=== PATIENT | male | born 2000 | race Caucasian/White ===

== ENCOUNTER 2021-11-04 09:02 | Emergency (ER) | payer MEDICAID ==
--- NOTE | 2021-11-04 09:09 | ERPHSYRPT ---
- History of Present Illness Time Seen by Provider: 11/04/21 09:09 Historian: patient Exam Limitations: no limitations Physician History: This is a 21-year-old white male who has no local physician and recently moved to the area. He has chronic, intermittent abdominal pain. Most recently the pain in his bilateral lower abdomen began a couple days ago. He has had nausea vomiting and alternating bouts of constipation and diarrhea. He has had no fever. He has no chills. He has no shortness of breath or chest pain. Patient has never had any abdominal surgeries. He has had an upper endoscopy in the past. Activities at Onset: none Quality: aching Abdominal Pain Onset Location: RLQ, LLQ Pain Radiation: no radiation Severity of Pain-Max: moderate Severity of Pain-Current: mild (Mild to moderate) Associated Symptoms: nausea, vomiting, other (Constipation), No chest pain, No diaphoresis, No shortness of breath Previous symptoms: same symptoms as today Allergies/Adverse Reactions: No Known Drug Allergies Allergy (Verified 11/04/21 09:33) Travel Risk - International Travel Have you traveled outside of the country in past 3 weeks: No - Coronavirus Screening Are you exhibiting any of the following symptoms?: No Close contact with a COVID-19 positive Pt in past 14-21 Days: No - Review of Systems Constitutional: No Symptoms Eyes: No Symptoms Ears, Nose, & Throat: No Symptoms Respiratory: No Symptoms Cardiac: No Symptoms Abdominal/Gastrointestinal: Abdominal Pain, Nausea, Vomiting, Constipation Genitourinary Symptoms: No Symptoms Musculoskeletal: No Symptoms Skin: No Symptoms Neurological: No Symptoms Psychological: No Symptoms Endocrine: No Symptoms Hematologic/Lymphatic: No Symptoms Immunological/Allergic: No Symptoms All Other Systems: Reviewed and Negative - Past Medical History Pertinent Past Medical History: No - Past Surgical History Past Surgical History: No - Nursing Vital Signs Nursing Vital Signs: Initial Vital Signs Temperature 96.9 F 11/04/21 09:19 Pulse Rate 89 11/04/21 09:19 Blood Pressure 131/91 11/04/21 09:19 O2 Sat by Pulse Oximetry 99 11/04/21 09:19 Pain Scale Pain Intensity 4 - Physical Exam General Appearance: no apparent distress, alert, anxiety Eye Exam: PERRL/EOMI, eyes nml inspection Ears, Nose, Throat Exam: normal ENT inspection, moist mucous membranes Neck Exam: normal inspection, non-tender, supple, full range of motion Respiratory Exam: normal breath sounds, lungs clear, airway intact, No chest tenderness, No respiratory distress Cardiovascular Exam: regular rate/rhythm, normal heart sounds, normal peripheral pulses Gastrointestinal/Abdomen Exam: soft, normal bowel sounds, tenderness (Mild tenderness to palpation in the bilateral lower quadrants. 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, normal mood/affect, nml cerebellar function, nml station & gait, sensation nml Skin Exam: normal color, warm, dry Lymphatic Exam: No adenopathy SpO2 Interpretation: normal O2 Delivery: Room Air - Course Nursing assessment & vital signs reviewed: Yes Ordered Tests: Active Orders 24 hr Category Date Time Status IV Insertion STAT Care 11/04/21 09:55 Active ABDOMEN AND PELVIS W/0 CONTRAS [CT] Stat Exams 11/04/21 10:45 Completed AMYLASE Stat Lab 11/04/21 10:20 Completed BLOOD CULTURE Stat Lab 11/04/21 10:53 Received CBC W DIFF Stat Lab 11/04/21 09:55 Completed CMP Stat Lab 11/04/21 10:20 Completed LIPASE Stat Lab 11/04/21 10:20 Completed Lactic Acid Stat Lab 11/04/21 10:15 Completed UA W/RFX UR CULTURE Stat Lab 11/04/21 09:55 Completed Medication Summary Discontinued Medications Generic Name Dose Route Start Last Admin Trade Name Dennis PRN Reason Stop Dose Admin Sodium Chloride 1,000 mls @ 999 mls/hr 11/04/21 09:55 11/04/21 11:30 Sodium Chloride 0.9% 1000 Ml IV 11/04/21 10:55 Infused .Q1H1M STA Infusion Sodium Chloride Confirm 11/04/21 10:20 Sodium Chloride 0.9% 1000 Ml Administered 11/04/21 10:21 Dose 1,000 mls @ ud .ROUTE .STK-MED ONE Ondansetron HCl 4 mg 11/04/21 09:55 11/04/21 10:22 Ondansetron Hcl 4 Mg/2 Ml Vial IV 11/04/21 09:56 4 mg STAT ONE Administration Ondansetron HCl Confirm 11/04/21 10:20 Ondansetron Hcl 4 Mg/2 Ml Vial Administered 11/04/21 10:21 Dose 4 mg .ROUTE .K-MED ONE Lab/Rad Data: Laboratory Result Diagrams 11/04/21 09:55 11/04/21 10:20 Laboratory Results 11/04/21 11/04/21 11/04/21 Range/Units 10:20 10:15 09:55 WBC 12.6 H (4.0-10.5) K/mm3 RBC 4.73 (4.1-5.6) M/mm3 Hgb 14.5 (12.5-18.0) gm/dl Hct 43.8 (42-50) % MCV 92.6 (78-100) fl MCH 30.7 (26-32) pg MCHC 33.1 (32-36) g/dl RDW 12.7 (11.5-14.0) % Plt Count 193 (150-450) K/mm3 MPV 11.7 H (7.5-11.0) fl Gran % 78.6 H (36.0-66.0) % Eos # (Auto) 0.02 (0-0.5) Absolute Lymphs (auto) 1.68 (1.0-4.6) Absolute Monos (auto) 0.98 (0.0-1.3) Lymphocytes % 13.3 L (24.0-44.0) % Monocytes % 7.8 (0.0-12.0) % Eosinophils % 0.2 (0.00-5.0) % Basophils % 0.1 (0.0-0.4) % Absolute Granulocytes 9.92 H (1.4-6.9) Basophils # 0.01 (0-0.4) Sodium 136 L (137-145) mmol/L Potassium 3.8 (3.5-5.1) mmol/L Chloride 105 (98-107) mmol/L Carbon Dioxide 24 (22-30) mmol/L Anion Gap 11.7 (5-15) MEQ/L BUN 14 (9-20) mg/dL Creatinine 0.93 (0.66-1.25) mg/dL Estimated GFR > 60.0 ML/MIN Glucose 92 (74-106) mg/dL Lactic Acid 1.1 (0.4-2.0) Calcium 9.2 (8.4-10.2) mg/dL Total Bilirubin 1.10 (0.2-1.3) mg/dL AST 22 (17-59) U/L ALT 36 (0-50) U/L Alkaline Phosphatase 71 (38-126) U/L Serum Total Protein 7.4 (6.3-8.2) g/dL Albumin 4.6 (3.5-5.0) g/dL Amylase 79 (30-110) U/L Lipase 53 (23-300) U/L Urine Color (YELLOW) Urine Appearance (CLEAR) Urine pH (5-6) Ur Specific [place] (1.005-1.025) Urine Protein (Negative) Urine Ketones (NEGATIVE) Urine Blood (0-5) [place]/ul Urine Nitrite (NEGATIVE) Urine Bilirubin (NEGATIVE) Urine Urobilinogen (0-1) mg/dL Ur Leukocyte Esterase (NEGATIVE) Urine WBC (Auto) (0-5) /HPF Urine RBC (Auto) (0-2) /HPF U Epithel Cells (Auto) (FEW) /HPF Urine Bacteria (Auto) (NEGATIVE) /HPF Urine Mucus (Auto) (NEGATIVE) /HPF Urine Culture Reflexed (NO) Urine Glucose (NEGATIVE) mg/dL 11/04/21 Range/Units 09:55 WBC (4.0-10.5) K/mm3 RBC (4.1-5.6) M/mm3 Hgb (12.5-18.0) gm/dl Hct (42-50) % MCV (78-100) fl MCH (26-32) pg MCHC (32-36) g/dl RDW (11.5-14.0) % Plt Count (150-450) K/mm3 MPV (7.5-11.0) fl Gran % (36.0-66.0) % Eos # (Auto) (0-0.5) Absolute Lymphs (auto) (1.0-4.6) Absolute Monos (auto) (0.0-1.3) Lymphocytes % (24.0-44.0) % Monocytes % (0.0-12.0) % Eosinophils % (0.00-5.0) % Basophils % (0.0-0.4) % Absolute Granulocytes (1.4-6.9) Basophils # (0-0.4) Sodium (137-145) mmol/L Potassium (3.5-5.1) mmol/L Chloride (98-107) mmol/L Carbon Dioxide (22-30) mmol/L Anion Gap (5-15) MEQ/L BUN (9-20) mg/dL Creatinine (0.66-1.25) mg/dL Estimated GFR ML/MIN Glucose (74-106) mg/dL Lactic Acid (0.4-2.0) Calcium (8.4-10.2) mg/dL Total Bilirubin (0.2-1.3) mg/dL AST (17-59) U/L ALT (0-50) U/L Alkaline Phosphatase (38-126) U/L Serum Total Protein (6.3-8.2) g/dL Albumin (3.5-5.0) g/dL Amylase (30-110) U/L Lipase (23-300) U/L Urine Color YELLOW (YELLOW) Urine Appearance CLEAR (CLEAR) Urine pH 9.0 (5-6) Ur Specific [place] 1.027 (1.005-1.025) Urine Protein 30 (Negative) Urine Ketones NEGATIVE (NEGATIVE) Urine Blood NEGATIVE (0-5) [place]/ul Urine Nitrite NEGATIVE (NEGATIVE) Urine Bilirubin NEGATIVE (NEGATIVE) Urine Urobilinogen 4 (0-1) mg/dL Ur Leukocyte Esterase NEGATIVE (NEGATIVE) Urine WBC (Auto) NONE (0-5) /HPF Urine RBC (Auto) NONE (0-2) /HPF U Epithel Cells (Auto) NONE (FEW) /HPF Urine Bacteria (Auto) NONE (NEGATIVE) /HPF Urine Mucus (Auto) SLIGHT (NEGATIVE) /HPF Urine Culture Reflexed NO (NO) Urine Glucose NEGATIVE (NEGATIVE) mg/dL - Progress Progress: improved, pain not gone completely, re-examined Progress Note: 11/04/21 11:50 CAT scan of the abdomen pelvis without contrast is negative. There is no acute process in the abdomen or pelvis. Counseled pt/family regarding: lab results, diagnosis, need for follow-up, rad results - Departure Departure Disposition: Home Clinical Impression: Abdominal pain, Nausea & vomiting Condition: Stable Critical Care Time: No Additional Instructions: Start your diet out with clear liquids. Advance slowly to a regular diet. Follow-up with local primary care provider. See list provided. May use Tylenol and ibuprofen for pain control if there are no contraindications for you to do so. Prescriptions: Ondansetron ODT 4 MG [Zofran Odt 4 mg] 4 mg PO Q6H PRN PRN #10 tablet PRN Reason: Vomiting
[2021-11-04] MEDS ORDERED: Zofran 4 MG/2 ML VIAL IV ONE (09:55)
[2021-11-04] MEDS ORDERED: Sodium Chloride 0.9% 1000 ML 1,000 ML IV STA (09:55)
[2021-11-04] MEDS ORDERED: Zofran 4 MG/2 ML VIAL ONE (10:20)
[2021-11-04] MEDS ORDERED: Sodium Chloride 0.9% 1000 ML 1,000 ML ONE (10:20)
[2021-11-04 10:27] LABS: Absolute Neutrophil Ct (ANC) 9.92 (1.4-6.9); BASOPHIL % 0.1 % (0.0-0.4); Basophil (Absolute #) 0.01 (0-0.4); Eosinophil % 0.2 % (0.00-5.0); Eosinophil (Absolute #) 0.02 (0-0.5); Hematocrit 43.8 % (42-50); Hemoglobin 14.5 gm/dl (12.5-18.0); Lymphocyte (Absolute #) 1.68 (1.0-4.6); Lymphocytes % 13.3 % (24.0-44.0); Mean Cell Volume 92.6 fl (78-100); Mean Corpuscular Hemoglobin 30.7 pg (26-32); Mean Corpuscular Hgb Concent. 33.1 g/dl (32-36); Mean Platelet Volume 11.7 fl (7.5-11.0); Monocyte (Absolute #) 0.98 (0.0-1.3); Monocytes % 7.8 % (0.0-12.0); Neutrophil % 78.6 % (36.0-66.0); Platelet Count 193 K/mm3 (150-450); Red Blood Count 4.73 M/mm3 (4.1-5.6); Red Cell Distribution Width 12.7 % (11.5-14.0); White Blood Count 12.6 K/mm3 (4.0-10.5)
[2021-11-04 10:41] LABS: ALBUMIN 4.6 g/dL (3.5-5.0); ALKALINE PHOSPHATASE 71 U/L (38-126); AMYLASE 79 U/L (30-110); ANION GAP 11.7 MEQ/L (5-15); BLOOD UREA NITROGEN 14 mg/dL (9-20); CHLORIDE 105 mmol/L (98-107); Calcium 9.2 mg/dL (8.4-10.2); Carbon Dioxide 24 mmol/L (22-30); Creatinine 1 0.93 mg/dL (0.66-1.25); EST GLOMERULAR FILTRATION RATE > 60.0 ML/MIN; Glucose 92 mg/dL (74-106); LIPASE 53 U/L (23-300); Potassium 3.8 mmol/L (3.5-5.1); SGOT/AST 22 U/L (17-59); SGPT/ALT 36 U/L (0-50); SODIUM 136 mmol/L (137-145); Total Protein 7.4 g/dL (6.3-8.2)
[2021-11-04 11:14] LABS: Appearance CLEAR (CLEAR); Bilirubin NEGATIVE (NEGATIVE); Blood NEGATIVE Ery/ul (0-5); Glucose NEGATIVE (NEGATIVE); Ketones NEGATIVE (NEGATIVE); Leukocyte Esterase NEGATIVE (NEGATIVE); Mucus SLIGHT /HPF (NEGATIVE); Nitrite NEGATIVE (NEGATIVE); Protein,Urine Dip 30 (Negative); Specific Gravity 1.027 (1.005-1.025); Urobilinogen 4 mg/dL (0-1)
[2021-11-04 11:35] VITALS: BP 114/71; PULSE 88; O2SAT 95
--- NOTE | 2021-11-04 11:47 | XRAY ---
Indication: Abdomen pain, nausea, vomiting, diarrhea. Multiple contiguous axial images obtained through the abdomen and pelvis without contrast. Comparison: None Lung bases demonstrates minimal fibrosis/scarring and small left lower lobe calcified granulomas. No infiltrate or effusion. Heart not enlarged. Noncontrasted stomach and bowel loops nonobstructed. Normal appendix. No free fluid/air. Remaining liver, gallbladder, pancreas, spleen, adrenal glands, kidneys, ureters, bladder, and aorta are unremarkable for noncontrast exam. Osseous structures intact. Impression: Negative CT abdomen/pelvis without contrast exam. Incidental left lower lobe calcified granulomas.
== END 2021-11-04 12:11 | disposition home or self-care (01) ==
LOC: ED 09:02
DX: R10.30 Lower abdominal pain, unspecified (principal); R11.2 Nausea with vomiting, unspecified; K59.00 Constipation, unspecified
CPT/HCPCS: 36415; 74176; 80053; 81001; 82150; 83605; 83690; 85025; 87040; 96374; 99284; J2405

== ENCOUNTER 2022-05-03 19:50 | Emergency (ER) | payer MEDICAID, OTHER ==
[2022-05-03] MEDS ORDERED: Sodium Chloride 0.9% 1000 ML 1,000 ML IV STA (20:05)
[2022-05-03 20:06] VITALS: O2SAT 100
[2022-05-03] MEDS ORDERED: Sodium Chloride 0.9% 1000 ML 1,000 ML ONE (20:14)
[2022-05-03 20:40] LABS: Absolute Neutrophil Ct (ANC) 10.72 x10^3/uL (1.4-6.9); Basophil (Absolute #) 0.04 x10^3/uL (0-0.4); Eosinophil % 0.5 % (0.00-5.0); Eosinophil (Absolute #) 0.06 x10^3/uL (0-0.5); Hematocrit 44.2 % (42-50); Hemoglobin 15.6 g/dL (12.5-18.0); Lymphocyte (Absolute #) 0.73 x10^3/uL (1.0-4.6); Lymphocytes % 5.6 % (24.0-44.0); Mean Cell Volume 89.3 fL (78-100); Mean Corpuscular Hemoglobin 31.5 pg (26-32); Mean Corpuscular Hgb Concent. 35.3 g/dL (32-36); Mean Platelet Volume 11.2 fL (7.5-11.0); Monocyte (Absolute #) 1.27 x10^3/uL (0.0-1.3); Monocytes % 9.8 % (0.0-12.0); Neutrophil % 82.4 % (36.0-66.0); Platelet Count 259 x10^3/uL (150-450); Red Blood Count 4.95 x10^6/uL (4.1-5.6); Red Cell Distribution Width 11.7 % (11.5-14.0)
--- NOTE | 2022-05-03 20:49 | ERPHSYRPT ---
- History of Present Illness Time Seen by Provider: 05/03/22 19:58 Source: patient Exam Limitations: no limitations Patient Subjective Stated Complaint: pt states "I began to have this tingling and it's freaking me out. 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 Symptoms started approximately 2 to 3 hours prior to arrival. Patient states I am very anxious. Patient states "it is freaking me out. Otherwise asymptomatic. No chest pain. No nausea vomiting or diaphoresis. Patient states he has smoking marijuana but denies drug ingestion otherwise. Patient denies history of the same. He states he is otherwise healthy. No numbness or weakness. Patient voices no other complaint or concerns at this time. Patient has no urinary symptomology or complaints Portions of this note were created with voice recognition technology. There may be grammatical, spelling, punctuation or sound alike errors Timing/Duration: today Severity: mild Modifying Factors: Improves With: nothing Associated Symptoms: denies symptoms Allergies/Adverse Reactions: No Known Drug Allergies Allergy (Verified 05/03/22 19:55) Home Medications: No Reportable Medications [No Reported Medications] 05/03/22 [History] Hx Tetanus, Diphtheria Vaccination/Date Given: No (unknown) Hx Influenza Vaccination/Date Given: No Hx Pneumococcal Vaccination/Date Given: No Immunizations Up to Date: Yes Travel Risk - International Travel Have you traveled outside of the country in past 3 weeks: No - Coronavirus Screening Are you exhibiting any of the following symptoms?: No Close contact with a COVID-19 positive Pt in past 14-21 Days: No - Vaccine Status Have you recieved a Covid-19 vaccination: No - Review of Systems Constitutional: No Symptoms, No Fever, No Chills Eyes: No Symptoms Ears, Nose, & Throat: No Symptoms Respiratory: No Symptoms, No Cough, No Dyspnea Cardiac: No Symptoms, No Chest Pain, No Edema, No Syncope Abdominal/Gastrointestinal: No Symptoms, No Abdominal Pain, No Nausea, No Vomiting, No Diarrhea Genitourinary Symptoms: No Symptoms, No Dysuria Musculoskeletal: No Symptoms, No Back Pain, No Neck Pain Skin: No Symptoms, No Rash Neurological: No Symptoms, No Dizziness, No Focal Weakness, No Sensory Changes Psychological: No Symptoms Endocrine: No Symptoms Hematologic/Lymphatic: No Symptoms Immunological/Allergic: No Symptoms All Other Systems: Reviewed and Negative - Past Medical History Pertinent Past Medical History: No - Past Surgical History Past Surgical History: No Other Surgical History: skin cancer - Social History Smoking Status: Former smoker Exposure to second hand smoke: No Drug Use: marijuana Patient Lives Alone: No - Nursing Vital Signs Nursing Vital Signs: Initial Vital Signs Temperature 99.8 F 05/03/22 19:56 Pulse Rate 115 H 05/03/22 19:56 Respiratory Rate 24 05/03/22 19:56 Blood Pressure 130/86 05/03/22 19:56 O2 Sat by Pulse Oximetry 100 05/03/22 19:56 Pain Scale Pain Intensity 0 - Physical Exam General Appearance: no apparent distress, alert Eye Exam: PERRL/EOMI, eyes nml inspection Ears, Nose, Throat Exam: normal ENT inspection, TMs normal, pharynx normal, moist mucous membranes Neck Exam: normal inspection, non-tender, supple, full range of motion Respiratory Exam: normal breath sounds, lungs clear, airway intact, No respiratory distress Cardiovascular Exam: regular rate/rhythm, normal heart sounds, normal peripheral pulses Gastrointestinal/Abdomen Exam: soft, normal bowel sounds, No tenderness, No mass Back Exam: normal inspection, normal range of motion, No CVA tenderness, No vertebral tenderness Extremity Exam: normal inspection, normal range of motion, pelvis stable Neurologic Exam: alert, oriented x 3, cooperative, normal mood/affect, nml cerebellar function, nml station & gait, sensation nml, No motor deficits Skin Exam: normal color, warm, dry, No rash Lymphatic Exam: No adenopathy SpO2 Interpretation: normal SpO2: 100 O2 Delivery: Room Air - Course Nursing assessment & vital signs reviewed: Yes - Radiology Exams Chest X-ray Interpretation: Interpreted by me (No infiltrate or consolidation. Normal cardiac silhouette. Intact bony thorax) Ordered Tests: Active Orders 24 hr Category Date Time Status Groutman STAT Care 05/03/22 20:07 Active IV Insertion STAT Care 05/03/22 20:05 Active Pulse Oximetry (ED) STAT Care 05/03/22 20:05 Active CHEST 1 VIEW (PORTABLE) Stat Exams 05/03/22 22:08 Taken BLOOD CULTURE Stat Lab 05/03/22 22:27 Ordered CBC W DIFF Stat Lab 05/03/22 20:05 Completed CMP Stat Lab 05/03/22 20:05 Completed D-DIMER QUANTITATIVE Stat Lab 05/03/22 20:05 Completed ETHYL ALCOHOL Stat Lab 05/03/22 20:05 Completed TROPONIN Q3H Lab 05/03/22 20:15 Completed TROPONIN Q3H Lab 05/03/22 22:27 Received TROPONIN Q3H Lab 05/04/22 02:15 Ordered TROPONIN Q3H Lab 05/04/22 05:15 Ordered TROPONIN Q3H Lab 05/04/22 08:15 Ordered UA W/RFX CULTURE Stat Lab 05/03/22 22:26 Ordered Urine Triage Profile Stat Lab 05/03/22 21:20 Completed Medication Summary Discontinued Medications Generic Name Dose Route Start Last Admin Trade Name Dennis PRN Reason Stop Dose Admin Acetaminophen 975 mg 05/03/22 22:10 05/03/22 22:16 Acetaminophen 325 Mg Tablet PO 05/03/22 22:11 975 mg STAT ONE Administration Acetaminophen Confirm 05/03/22 22:14 Acetaminophen 325 Mg Tablet Administered 05/03/22 22:15 Dose 975 mg .ROUTE .STK-MED ONE Sodium Chloride 1,000 mls @ 999 mls/hr 05/03/22 20:05 05/03/22 21:34 Sodium Chloride 0.9% 1000 Ml IV 05/03/22 21:05 Infused .Q1H1M STA Infusion Sodium Chloride Confirm 05/03/22 20:14 Sodium Chloride 0.9% 1000 Ml Administered 05/03/22 20:15 Dose 1,000 mls @ ud .ROUTE .STK-MED ONE Lab/Rad Data: Laboratory Result Diagrams 05/03/22 20:05 05/03/22 20:05 Laboratory Results 05/03/22 05/03/22 05/03/22 Range/Units Unknown 21:20 20:15 WBC (4.0-10.5) x10^3/uL RBC (4.1-5.6) x10^6/uL Hgb (12.5-18.0) g/dL Hct (42-50) % MCV (78-100) fL MCH (26-32) pg MCHC (32-36) g/dL RDW (11.5-14.0) % Plt Count (150-450) x10^3/uL MPV (7.5-11.0) fL Gran % (36.0-66.0) % Immature Gran % (Auto) (0.00-0.4) % Nucleat RBC Rel Count (0.00-0.1) % Eos # (Auto) (0-0.5) x10^3/uL Immature Gran # (Auto) (0.00-0.03) x10^3u/L Absolute Lymphs (auto) (1.0-4.6) x10^3/uL Absolute Monos (auto) (0.0-1.3) x10^3/uL Absolute Nucleated RBC (0.00-0.01) x10^3u/L Lymphocytes % (24.0-44.0) % Monocytes % (0.0-12.0) % Eosinophils % (0.00-5.0) % Basophils % (0.0-0.4) % Absolute Granulocytes (1.4-6.9) x10^3/uL Basophils # (0-0.4) x10^3/uL D-Dimer (0.0-0.50) mg/L Sodium (137-145) mmol/L Potassium (3.5-5.1) mmol/L Chloride (98-107) mmol/L Carbon Dioxide (22-30) mmol/L Anion Gap (5-15) MEQ/L BUN (9-20) mg/dL Creatinine (0.66-1.25) mg/dL Estimated GFR ML/MIN Glucose (74-106) mg/dL Calcium (8.4-10.2) mg/dL Total Bilirubin (0.2-1.3) mg/dL AST (17-59) U/L ALT (0-50) U/L Alkaline Phosphatase (38-126) U/L Troponin I < 0.012 (0.000-0.034) ng/mL Serum Total Protein (6.3-8.2) g/dL Albumin (3.5-5.0) g/dL Urine Opiates Level NEGATIVE (NEGATIVE) Ur Methadone NEGATIVE (NEGATIVE) Urine Barbiturates NEGATIVE (NEGATIVE) Ur Phencyclidine (PCP) NEGATIVE (NEGATIVE) Urine Amphetamine NEGATIVE (NEGATIVE) U Benzodiazepine Level NEGATIVE (NEGATIVE) Urine Cocaine NEGATIVE (NEGATIVE) Urine Marijuana (THC) POSITIVE (NEGATIVE) Ethyl Alcohol (0-10) mg/dL Influenza Type A Ag NEGATIVE (NEGATIVE) Influenza Type B Ag NEGATIVE (NEGATIVE) RSV (PCR) NEGATIVE (Negative) SARS-CoV-2 (PCR) POSITIVE A (NEGATIVE) 05/03/22 05/03/22 05/03/22 Range/Units 20:05 20:05 20:05 WBC 13.0 H (4.0-10.5) x10^3/uL RBC 4.95 (4.1-5.6) x10^6/uL Hgb 15.6 (12.5-18.0) g/dL Hct 44.2 (42-50) % MCV 89.3 (78-100) fL MCH 31.5 (26-32) pg MCHC 35.3 (32-36) g/dL RDW 11.7 (11.5-14.0) % Plt Count 259 (150-450) x10^3/uL MPV 11.2 H (7.5-11.0) fL Gran % 82.4 H (36.0-66.0) % Immature Gran % (Auto) 1.4 H (0.00-0.4) % Nucleat RBC Rel Count 0.0 (0.00-0.1) % Eos # (Auto) 0.06 (0-0.5) x10^3/uL Immature Gran # (Auto) 0.18 H (0.00-0.03) x10^3u/L Absolute Lymphs (auto) 0.73 L (1.0-4.6) x10^3/uL Absolute Monos (auto) 1.27 (0.0-1.3) x10^3/uL Absolute Nucleated RBC 0.00 (0.00-0.01) x10^3u/L Lymphocytes % 5.6 L (24.0-44.0) % Monocytes % 9.8 (0.0-12.0) % Eosinophils % 0.5 (0.00-5.0) % Basophils % 0.3 (0.0-0.4) % Absolute Granulocytes 10.72 H (1.4-6.9) x10^3/uL Basophils # 0.04 (0-0.4) x10^3/uL D-Dimer 0.19 (0.0-0.50) mg/L Sodium 137 (137-145) mmol/L Potassium 3.8 (3.5-5.1) mmol/L Chloride 104 (98-107) mmol/L Carbon Dioxide 18 L (22-30) mmol/L Anion Gap 18.4 H (5-15) MEQ/L BUN 13 (9-20) mg/dL Creatinine 1.04 (0.66-1.25) mg/dL Estimated GFR > 60.0 ML/MIN Glucose 93 (74-106) mg/dL Calcium 10.0 (8.4-10.2) mg/dL Total Bilirubin 0.90 (0.2-1.3) mg/dL AST 54 (17-59) U/L ALT 75 H (0-50) U/L Alkaline Phosphatase 72 (38-126) U/L Troponin I (0.000-0.034) ng/mL Serum Total Protein 8.2 (6.3-8.2) g/dL Albumin 5.0 (3.5-5.0) g/dL Urine Opiates Level (NEGATIVE) Ur Methadone (NEGATIVE) Urine Barbiturates (NEGATIVE) Ur Phencyclidine (PCP) (NEGATIVE) Urine Amphetamine (NEGATIVE) U Benzodiazepine Level (NEGATIVE) Urine Cocaine (NEGATIVE) Urine Marijuana (THC) (NEGATIVE) Ethyl Alcohol < 10 (0-10) mg/dL Influenza Type A Ag (NEGATIVE) Influenza Type B Ag (NEGATIVE) RSV (PCR) (Negative) SARS-CoV-2 (PCR) (NEGATIVE) - Progress Progress: improved Progress Note: While in our ED patient spiked a fever. We obtained a COVID study patient is COVID-positive. Chest x-ray is negative for infiltrates or consolidations. Patient's fever defervesced at this time. Patient has no urinary symptomology patient otherwise feels well. Patient has an appetite. 05/03/22 22:56 Portions of this note were created with voice recognition technology. There may be grammatical, spelling, punctuation or sound alike errors 05/03/22 22:59 Counseled pt/family regarding: lab results, diagnosis, need for follow-up, rad results - Departure Departure Disposition: Home Clinical Impression: Fever, Leukocytosis, COVID-19 Condition: Stable Critical Care Time: No Referrals: DOCTOR,NO FAMILY [Primary Care Provider] - Follow up/PCP as directed THOMAS BELTRAN MD [ACTIVE STAFF] - Follow up/PCP as directed Additional Instructions: Discharge/Care Plan DARREN VINCENT was seen on 05/03/22 in the Emergency Room. The patient was counseled regarding Diagnosis,Lab results, Imaging studies, need for follow up and when to return to the Emergency Room. Prescriptions given: Discharge Note I have spoken with the patient and/or caregivers. I have explained the patient's condition, diagnosis and treatment plan based on the information available to me at this time. I have answered the patient's and/or caregiver's questions and addressed any concerns. The patient and/or caregivers have as good understanding of the patient's diagnosis, condition and treatment plan as can be expected at this point. The vital signs have been stable. The patient's condition is stable and appropriate for discharge from the emergency department. The patient will pursue further outpatient evaluation with the primary care phys ician or other designated or consulting physician as outlined in the discharge instructions. The patient and/or caregivers are agreeable to this plan of care and follow-up instructions have been explained in detail. The patient and/or caregivers have received these instruction. The patient/and or caregivers are aware that any significant change in condition or worsening of symptoms should prompt an immediate return to this or the closest emergency department or call 911.
[2022-05-03 21:01] LABS: ALKALINE PHOSPHATASE 72 U/L (38-126); ANION GAP 18.4 MEQ/L (5-15); BLOOD UREA NITROGEN 13 mg/dL (9-20); CHLORIDE 104 mmol/L (98-107); Carbon Dioxide 18 mmol/L (22-30); Creatinine 1 1.04 mg/dL (0.66-1.25); EST GLOMERULAR FILTRATION RATE > 60.0 ML/MIN; ETHYL ALCOHOL < 10 mg/dL (0-10); Glucose 93 mg/dL (74-106); Potassium 3.8 mmol/L (3.5-5.1); SGOT/AST 54 U/L (17-59); SODIUM 137 mmol/L (137-145); Total Protein 8.2 g/dL (6.3-8.2)
[2022-05-03 21:07] LABS: SGPT/ALT 75 U/L (0-50)
[2022-05-03 21:54] LABS: Amphetamine,Urine NEGATIVE (NEGATIVE); Barbiturate,Urine NEGATIVE (NEGATIVE); Benzodiazepine,Urine NEGATIVE (NEGATIVE); Cocaine,Urine NEGATIVE (NEGATIVE); Methadone,Urine NEGATIVE (NEGATIVE); Opiate,Urine NEGATIVE (NEGATIVE); PCP,Urine NEGATIVE (NEGATIVE); THC,Urine POSITIVE (NEGATIVE)
[2022-05-03] MEDS ORDERED: TYLENOL 325 MG PO ONE (22:10)
[2022-05-03] MEDS ORDERED: TYLENOL 325 MG ONE (22:14)
[2022-05-03 22:32] LABS: INFLUENZA A NEGATIVE (NEGATIVE); INFLUENZA B NEGATIVE (NEGATIVE); RESPIRATORY SYNCTIAL VIRUS NEGATIVE (Negative)
[2022-05-03 22:48] LABS: SARS-CoV-2 Xpert Express POSITIVE (NEGATIVE)
[2022-05-03 23:22] VITALS: BP 105/74; PULSE 108
--- NOTE | 2022-05-04 08:56 | XRAY ---
Indication: Pneumonia. Comparison: None Portable chest demonstrates normal heart, lungs, and bony thorax with incidental azygos lobe. Tiny wire like density overlies left hilum felt to be external.
== END 2022-05-03 23:21 | disposition home or self-care (01) ==
LOC: ED 19:50
DX: U07.1 COVID-19 (principal); R50.9 Fever, unspecified; D72.829 Elevated white blood cell count, unspecified; R20.2 Paresthesia of skin; Z28.310 Unvaccinated for COVID-19
CPT/HCPCS: 0241U; 36000; 36415; 71045; 80053; 80307; 84484; 85025; 85379; 87040; 93041; 94760; 96360; 99284; G0480; A9270-GY

== ENCOUNTER 2023-02-26 12:47 | Emergency (ER) | payer OTHER ==
--- NOTE | 2023-02-26 13:09 | ERPHSYRPT ---
- History of Present Illness Time Seen by Provider: 02/26/23 13:08 Historian: patient Exam Limitations: no limitations Patient Subjective Stated Complaint: pt here for pain to left side of chest and left lower arm for about an hour today resting Triage Nursing Assessment: pt alert, walked in, resp easy, face mask in place, skin w/d/p, no edema noted, Physician History: Several hours ago he had left chest pain radiating to left arm. Getting better. No other issues, hx GERD, no hx CAD. Smokes marijuana only. Denies sub. abuse. Family hx of CAD. No pattern to the pain. Timing/Duration: today Activities at Onset: none Quality: pressure Location: substernal Chest Pain Radiation: arm Severity of Pain-Max: moderate Severity of Pain-Current: mild Modifying Factors: Improves With: nothing Associated Symptoms: denies symptoms Prior Chest Pain/Cardiac Workup: no prior chest pain, no prior cardiac workup Nitro Today/Relief: no nitro taken today Aspirin Treatment Today: no aspirin today Allergies/Adverse Reactions: No Known Drug Allergies Allergy (Verified 02/26/23 12:51) Home Medications: Omeprazole 20 mg PO DAILY 02/26/23 [History] Hx Tetanus, Diphtheria Vaccination/Date Given: No (unknown) Hx Influenza Vaccination/Date Given: No Hx Pneumococcal Vaccination/Date Given: No Immunizations Up to Date: Yes Travel Risk - International Travel Have you traveled outside of the country in past 3 weeks: No - Coronavirus Screening Are you exhibiting any of the following symptoms?: No Close contact with a COVID-19 positive Pt in past 14-21 Days: No - Vaccine Status Have you recieved a Covid-19 vaccination: No - Review of Systems Constitutional: No Symptoms Eyes: No Symptoms Ears, Nose, & Throat: No Symptoms Respiratory: No Symptoms Cardiac: Chest Pain Abdominal/Gastrointestinal: No Symptoms Genitourinary Symptoms: No Symptoms Musculoskeletal: No Symptoms Skin: No Symptoms Neurological: No Symptoms Psychological: No Symptoms Endocrine: No Symptoms Hematologic/Lymphatic: No Symptoms Immunological/Allergic: No Symptoms All Other Systems: Reviewed and Negative - Past Medical History Pertinent Past Medical History: No Neurological History: No Pertinent History ENT History: No Pertinent History Cardiac History: No Pertinent History Respiratory History: No Pertinent History Endocrine Medical History: No Pertinent History Musculoskeletal History: No Pertinent History GI Medical History: No Pertinent History, GERD History: No Pertinent History Psycho-Social History: No Pertinent History Male Reproductive Disorders: No Pertinent History - Past Surgical History Past Surgical History: No Neuro Surgical History: No Pertinent History Cardiac: No Pertinent History Respiratory: No Pertinent History Gastrointestinal: No Pertinent History Genitourinary: No Pertinent History Musculoskeletal: No Pertinent History Male Surgical History: No Pertinent History Other Surgical History: skin cancer - Social History Smoking Status: Former smoker Exposure to second hand smoke: No Drug Use: marijuana Patient Lives Alone: No Significant Family History: heart disease - Nursing Vital Signs Nursing Vital Signs: Initial Vital Signs Temperature 97.2 F 02/26/23 12:51 Pulse Rate 92 H 02/26/23 12:51 Respiratory Rate 16 02/26/23 12:51 Blood Pressure 148/96 02/26/23 12:51 O2 Sat by Pulse Oximetry 98 02/26/23 12:51 Pain Scale Pain Intensity 0 - Physical Exam General Appearance: no apparent distress, obese Eye Exam: PERRL/EOMI Ears, Nose, Throat Exam: normal ENT inspection Neck Exam: normal inspection Respiratory Exam: normal breath sounds, lungs clear Cardiovascular Exam: regular rate/rhythm, normal heart sounds Gastrointestinal/Abdomen Exam: soft, normal bowel sounds Back Exam: normal inspection, normal range of motion Extremity Exam: normal inspection, normal range of motion Neurologic Exam: alert, oriented x 3, cooperative Skin Exam: normal color, warm, dry SpO2 Interpretation: normal SpO2: 98 O2 Delivery: Room Air - Course Nursing assessment & vital signs reviewed: Yes EKG Interpreted by Me: RATE, Sinus Rhythm, NORMAL AXIS, NORMAL INTERVALS, NORMAL QRS - Radiology Exams Chest X-ray Interpretation: Interpreted by me, Negative Ordered Tests: Active Orders 24 hr Category Date Time Status CHEST 1 VIEW (PORTABLE) Stat Exams 02/26/23 13:39 Taken CBC W DIFF Stat Lab 02/26/23 13:00 Completed CMP Stat Lab 02/26/23 13:00 Completed D-DIMER QUANTITATIVE Stat Lab 02/26/23 13:00 Completed TROPONIN Q4H Lab 02/26/23 13:00 Completed TROPONIN Q4H Lab 02/26/23 16:16 Completed TROPONIN Q4H Lab 02/26/23 21:30 Ordered Medication Summary Discontinued Medications Generic Name Dose Route Start Last Admin Trade Name Freq PRN Reason Stop Dose Admin Aspirin 324 mg 02/26/23 17:02 02/26/23 17:14 Aspirin 81 Mg Tab.Chew PO 02/26/23 17:03 324 mg STAT ONE Administration Aspirin Confirm 02/26/23 17:12 Aspirin 81 Mg Tab.Chew Administered 02/26/23 17:13 Dose 324 mg .ROUTE .STK-MED ONE Enoxaparin Sodium 100 mg 02/26/23 17:52 02/26/23 18:03 Enoxaparin Sodium 120 Mg/0.8 Ml Syringe SQ 02/26/23 17:53 100 mg STAT STA Administration Enoxaparin Sodium Confirm 02/26/23 18:01 Enoxaparin Sodium 120 Mg/0.8 Ml Syringe Administered 02/26/23 18:02 Dose 120 mg SQ .STK-MED ONE Nitroglycerin 1 gm 02/26/23 17:48 02/26/23 18:02 Nitroglycerin 1 Gm Packet TOP 02/26/23 17:49 1 gm STAT ONE Administration Nitroglycerin Confirm 02/26/23 18:01 Nitroglycerin 1 Gm Packet Administered 02/26/23 18:02 Dose 1 gm .ROUTE .STK-MED ONE Lab/Rad Data: Laboratory Result Diagrams 02/26/23 13:00 02/26/23 13:00 Laboratory Results 02/26/23 02/26/23 02/26/23 Range/Units 16:16 13:00 13:00 WBC (4.0-10.5) x10^3/uL RBC (4.1-5.6) x10^6/uL Hgb (12.5-18.0) g/dL Hct (42-50) % MCV (78-100) fL MCH (26-32) pg MCHC (32-36) g/dL RDW (11.5-14.0) % Plt Count (150-450) x10^3/uL MPV (7.5-11.0) fL Gran % (36.0-66.0) % Immature Gran % (Auto) (0.00-0.4) % Nucleat RBC Rel Count (0.00-0.1) % Eos # (Auto) (0-0.5) x10^3/uL Immature Gran # (Auto) (0.00-0.03) x10^3u/L Absolute Lymphs (auto) (1.0-4.6) x10^3/uL Absolute Monos (auto) (0.0-1.3) x10^3/uL Absolute Nucleated RBC (0.00-0.01) x10^3u/L Lymphocytes % (24.0-44.0) % Monocytes % (0.0-12.0) % Eosinophils % (0.00-5.0) % Basophils % (0.0-0.4) % Absolute Granulocytes (1.4-6.9) x10^3/uL Basophils # (0-0.4) x10^3/uL D-Dimer 0.49 (0.0-0.50) mg/L Sodium (137-145) mmol/L Potassium (3.5-5.1) mmol/L Chloride (98-107) mmol/L Carbon Dioxide (22-30) mmol/L Anion Gap (5-15) MEQ/L BUN (9-20) mg/dL Creatinine (0.66-1.25) mg/dL Estimated GFR ML/MIN Glucose (74-106) mg/dL Calcium (8.4-10.2) mg/dL Total Bilirubin (0.2-1.3) mg/dL AST (17-59) U/L ALT (0-50) U/L Alkaline Phosphatase (38-126) U/L Troponin I 0.387 H* 0.074 H* (0.000-0.034) ng/mL Serum Total Protein (6.3-8.2) g/dL Albumin (3.5-5.0) g/dL Slides for Path Review 02/26/23 02/26/23 Range/Units 13:00 13:00 WBC 13.8 H (4.0-10.5) x10^3/uL RBC 5.00 (4.1-5.6) x10^6/uL Hgb 15.5 (12.5-18.0) g/dL Hct 45.8 (42-50) % MCV 91.6 (78-100) fL MCH 31.0 (26-32) pg MCHC 33.8 (32-36) g/dL RDW 11.9 (11.5-14.0) % Plt Count 251 (150-450) x10^3/uL MPV 11.9 H (7.5-11.0) fL Gran % 54.1 (36.0-66.0) % Immature Gran % (Auto) 1.0 H (0.00-0.4) % Nucleat RBC Rel Count 0.0 (0.00-0.1) % Eos # (Auto) 0.27 (0-0.5) x10^3/uL Immature Gran # (Auto) 0.14 H (0.00-0.03) x10^3u/L Absolute Lymphs (auto) 5.01 H (1.0-4.6) x10^3/uL Absolute Monos (auto) 0.86 (0.0-1.3) x10^3/uL Absolute Nucleated RBC 0.00 (0.00-0.01) x10^3u/L Lymphocytes % 36.3 (24.0-44.0) % Monocytes % 6.2 (0.0-12.0) % Eosinophils % 2.0 (0.00-5.0) % Basophils % 0.4 (0.0-0.4) % Absolute Granulocytes 7.45 H (1.4-6.9) x10^3/uL Basophils # 0.06 (0-0.4) x10^3/uL D-Dimer (0.0-0.50) mg/L Sodium 141 (137-145) mmol/L Potassium 4.3 (3.5-5.1) mmol/L Chloride 101 (98-107) mmol/L Carbon Dioxide 29 (22-30) mmol/L Anion Gap 15.8 H (5-15) MEQ/L BUN 11 (9-20) mg/dL Creatinine 0.94 (0.66-1.25) mg/dL Estimated GFR > 60.0 ML/MIN Glucose 95 (74-106) mg/dL Calcium 8.9 (8.4-10.2) mg/dL Total Bilirubin 0.70 (0.2-1.3) mg/dL AST 33 (17-59) U/L ALT 47 (0-50) U/L Alkaline Phosphatase 77 (38-126) U/L Troponin I (0.000-0.034) ng/mL Serum Total Protein 8.0 (6.3-8.2) g/dL Albumin 4.7 (3.5-5.0) g/dL Slides for Path Review YES - Progress Progress: improved Air Movement: good Progress Note: 02/26/23 19:37 CP - resolved while in ED without NTG. EKG no ischemia. Troponins mildly elevated. Transfer to [facility], Dr. Ontiveros accepts. Patient given ASA, NTP, lovenox. Blood Culture(s) Obtained: No Antibiotics given: No Counseled pt/family regarding: lab results, diagnosis, need for follow-up, rad results - Departure Departure Disposition: Transfer Clinical Impression: Elevated troponin Condition: Stable Critical Care Time: Yes Critical Care Time(excluding separately billable procedures): Critical 30-74 mins Referrals: BRI WING [Primary Care Provider] - Follow up/PCP as directed
[2023-02-26 13:45] LABS: Absolute Neutrophil Ct (ANC) 7.45 x10^3/uL (1.4-6.9); BASOPHIL % 0.4 % (0.0-0.4); Basophil (Absolute #) 0.06 x10^3/uL (0-0.4); Eosinophil (Absolute #) 0.27 x10^3/uL (0-0.5); Hematocrit 45.8 % (42-50); Hemoglobin 15.5 g/dL (12.5-18.0); IMMATURE GRAN # 0.14 x10^3u/L (0.00-0.03); Lymphocyte (Absolute #) 5.01 x10^3/uL (1.0-4.6); Lymphocytes % 36.3 % (24.0-44.0); Mean Cell Volume 91.6 fL (78-100); Mean Corpuscular Hgb Concent. 33.8 g/dL (32-36); Mean Platelet Volume 11.9 fL (7.5-11.0); Monocyte (Absolute #) 0.86 x10^3/uL (0.0-1.3); Monocytes % 6.2 % (0.0-12.0); Neutrophil % 54.1 % (36.0-66.0); Platelet Count 251 x10^3/uL (150-450); Red Cell Distribution Width 11.9 % (11.5-14.0); White Blood Count 13.8 x10^3/uL (4.0-10.5)
[2023-02-26 13:58] LABS: ALBUMIN 4.7 g/dL (3.5-5.0); ALKALINE PHOSPHATASE 77 U/L (38-126); ANION GAP 15.8 MEQ/L (5-15); BLOOD UREA NITROGEN 11 mg/dL (9-20); CHLORIDE 101 mmol/L (98-107); Calcium 8.9 mg/dL (8.4-10.2); Carbon Dioxide 29 mmol/L (22-30); Creatinine 1 0.94 mg/dL (0.66-1.25); EST GLOMERULAR FILTRATION RATE > 60.0 ML/MIN; Glucose 95 mg/dL (74-106); Potassium 4.3 mmol/L (3.5-5.1); SGOT/AST 33 U/L (17-59); SGPT/ALT 47 U/L (0-50); SODIUM 141 mmol/L (137-145)
[2023-02-26 16:17] LABS: Slide Review 1 YES
[2023-02-26] MEDS ORDERED: BABY ASPIRIN 81 MG CHEW PO ONE (17:02)
[2023-02-26] MEDS ORDERED: BABY ASPIRIN 81 MG CHEW ONE (17:12)
[2023-02-26] MEDS ORDERED: NITRO-BID 2% UD PACKETS TOP ONE (17:48)
[2023-02-26] MEDS ORDERED: ENOXAPARIN SODIUM SQ STA (17:52)
[2023-02-26] MEDS ORDERED: NITRO-BID 2% UD PACKETS ONE (18:01)
[2023-02-26] MEDS ORDERED: ENOXAPARIN SODIUM SQ ONE (18:01)
[2023-02-26 19:28] VITALS: BP 138/61; PULSE 69
[2023-02-26 19:36] VITALS: O2SAT 98
--- NOTE | 2023-02-26 19:40 | XRAY ---
Indication: Chest pain. Comparison: May 03, 2022 Portable chest again demonstrates normal heart, lungs, and bony thorax with incidental azygos lobe.
== END 2023-02-26 19:34 | disposition short-term general hospital (02) ==
LOC: ED 12:47
DX: R77.8 Other specified abnormalities of plasma proteins (principal); R07.9 Chest pain, unspecified; Z28.310 Unvaccinated for COVID-19
CPT/HCPCS: 36415; 71045; 80053; 84484; 85025; 85379; 96372; 99284; J1650; A9270-GY

== ENCOUNTER 2023-04-02 23:27 | Emergency (ER) | payer OTHER ==
--- NOTE | 2023-04-02 23:33 | ERPHSYRPT ---
- History of Present Illness Time Seen by Provider: 04/02/23 23:33 Historian: patient Exam Limitations: no limitations Physician History: This is a 27-year-old white female patient who presents to the emergency department with substernal central chest pain/pressure that radiated once down her left arm. She had some mild shortness of breath. Patient was having the symptoms approximately 1 to 1-1/2 hours prior to arrival to the emergency department. She has similar complaint and was seen in this emergency department on 02/26/2023. She describes the chest pain now is more of a discomfort. Patient has a history of hypertension and gastroesophageal reflux disease she also is taking Plavix. She has never been diagnosed with coronary disease but she does have a family history of coronary artery disease. Patient occasionally smokes marijuana. Patient also has a history of hyperlipidemia. He has been diagnosed with a myocardial infarction in the past. His medical administrative is Dr. Hong. He was placed on Plavix recently. Timing/Duration: today Activities at Onset: none (Playing video games) Quality: other (Discomfort) Chest Pain Radiation: arm (Once) Severity of Pain-Max: mild Severity of Pain-Current: mild Modifying Factors: Improves With: nothing Associated Symptoms: denies symptoms Prior Chest Pain/Cardiac Workup: recently seen/treated Nitro Today/Relief: no nitro taken today Aspirin Treatment Today: no aspirin today Allergies/Adverse Reactions: No Known Drug Allergies Allergy (Verified 04/02/23 23:28) Home Medications: Omeprazole 20 mg PO DAILY 02/26/23 [History] Aspirin EC 81 mg [Ecotrin 81 mg] 81 mg PO DAILY 04/02/23 [History] Atorvastatin Calcium 40 mg PO QHS 04/02/23 [History] Clopidogrel Bisulfate [Plavix] 75 mg PO DAILY 04/02/23 [History] Escitalopram Oxalate [Lexapro] 10 mg PO DAILY 04/02/23 [History] lisinopriL [Zestril] 2.5 mg PO DAILY 04/02/23 [History] Hx Tetanus, Diphtheria Vaccination/Date Given: No (unknown) Hx Influenza Vaccination/Date Given: No Hx Pneumococcal Vaccination/Date Given: No Travel Risk - International Travel Have you traveled outside of the country in past 3 weeks: No - Coronavirus Screening Are you exhibiting any of the following symptoms?: No Close contact with a COVID-19 positive Pt in past 14-21 Days: No - Vaccine Status Have you recieved a Covid-19 vaccination: No - Review of Systems Constitutional: No Symptoms Eyes: No Symptoms Ears, Nose, & Throat: No Symptoms Respiratory: No Symptoms Cardiac: No Symptoms, Chest Pain Abdominal/Gastrointestinal: No Symptoms Genitourinary Symptoms: No Symptoms Musculoskeletal: No Symptoms Skin: No Symptoms Neurological: No Symptoms Psychological: No Symptoms Endocrine: No Symptoms Hematologic/Lymphatic: No Symptoms Immunological/Allergic: No Symptoms All Other Systems: Reviewed and Negative - Past Medical History Pertinent Past Medical History: No Neurological History: No Pertinent History ENT History: No Pertinent History Cardiac History: No Pertinent History Respiratory History: No Pertinent History Endocrine Medical History: No Pertinent History Musculoskeletal History: No Pertinent History GI Medical History: No Pertinent History, GERD History: No Pertinent History Psycho-Social History: No Pertinent History Male Reproductive Disorders: No Pertinent History - Past Surgical History Past Surgical History: No Neuro Surgical History: No Pertinent History Cardiac: No Pertinent History Respiratory: No Pertinent History Gastrointestinal: No Pertinent History Genitourinary: No Pertinent History Musculoskeletal: No Pertinent History Male Surgical History: No Pertinent History Other Surgical History: skin cancer - Social History Smoking Status: Former smoker Exposure to second hand smoke: No Drug Use: marijuana Patient Lives Alone: No Significant Family History: heart disease - Nursing Vital Signs Nursing Vital Signs: Initial Vital Signs Temperature 98.3 F 04/02/23 23:28 Pulse Rate 89 04/02/23 23:28 Respiratory Rate 15 04/02/23 23:28 Blood Pressure 128/82 04/02/23 23:28 O2 Sat by Pulse Oximetry 98 04/02/23 23:28 Pain Scale Pain Intensity 0 - Physical Exam General Appearance: no apparent distress, alert, anxiety, obese Eye Exam: PERRL/EOMI, eyes nml inspection Ears, Nose, Throat Exam: normal ENT inspection, moist mucous membranes Neck Exam: normal inspection, non-tender, supple, full range of motion Respiratory Exam: normal breath sounds, chest tenderness, lungs clear, airway intact, No respiratory distress Cardiovascular Exam: regular rate/rhythm, normal heart sounds, normal peripheral pulses Gastrointestinal/Abdomen Exam: soft, normal bowel sounds, No tenderness Rectal Exam: not done Back Exam: normal inspection, normal range of motion, No CVA tenderness, No vertebral tenderness Extremity Exam: normal inspection, normal range of motion, pelvis stable Neurologic Exam: alert, oriented x 3, cooperative, energy specialist II-XII nml as tested, normal mood/affect, nml cerebellar function, nml station & gait, sensation nml Skin Exam: normal color, warm, dry Lymphatic Exam: No adenopathy SpO2 Interpretation: normal O2 Delivery: Room Air - Course Nursing assessment & vital signs reviewed: Yes EKG Interpreted by Me: RATE (81), Sinus Rhythm, NORMAL AXIS, NORMAL INTERVALS, NORMAL QRS, NORMAL ST-T, Other (No acute ischemic changes on today's twelve-lead EKG.) Ordered Tests: Active Orders 24 hr Category Date Time Status Broomcorn Sorter STAT Care 04/02/23 23:55 Active EKG-ER Only STAT Care 04/02/23 23:54 Active CHEST 1 VIEW (PORTABLE) Routine Exams 04/03/23 00:16 Taken CBC W DIFF Stat Lab 04/02/23 23:54 Completed CMP Stat Lab 04/02/23 23:54 Completed D-DIMER QUANTITATIVE Stat Lab 04/02/23 23:54 Completed PROTIME WITH INR Stat Lab 04/02/23 23:54 Completed TROPONIN Q4H Lab 04/03/23 00:00 Completed TROPONIN Q4H Lab 04/03/23 03:20 Completed TROPONIN Q4H Lab 04/03/23 09:00 Ordered Medication Summary Discontinued Medications Generic Name Dose Route Start Last Admin Trade Name Freq PRN Reason Stop Dose Admin Aspirin 324 mg 04/02/23 23:54 04/03/23 00:20 Aspirin 81 Mg Tab.Chew PO 04/02/23 23:55 324 mg STAT ONE Administration Lab/Rad Data: Laboratory Result Diagrams 04/02/23 23:54 04/02/23 23:54 Laboratory Results 04/03/23 04/03/23 04/02/23 Range/Units 03:20 00:00 23:54 WBC (4.0-10.5) x10^3/uL RBC (4.1-5.6) x10^6/uL Hgb (12.5-18.0) g/dL Hct (42-50) % MCV (78-100) fL MCH (26-32) pg MCHC (32-36) g/dL RDW (11.5-14.0) % Plt Count (150-450) x10^3/uL MPV (7.5-11.0) fL Gran % (36.0-66.0) % Immature Gran % (Auto) (0.00-0.4) % Nucleat RBC Rel Count (0.00-0.1) % Eos # (Auto) (0-0.5) x10^3/uL Immature Gran # (Auto) (0.00-0.03) x10^3u/L Absolute Lymphs (auto) (1.0-4.6) x10^3/uL Absolute Monos (auto) (0.0-1.3) x10^3/uL Absolute Nucleated RBC (0.00-0.01) x10^3u/L Lymphocytes % (24.0-44.0) % Monocytes % (0.0-12.0) % Eosinophils % (0.00-5.0) % Basophils % (0.0-0.4) % Absolute Granulocytes (1.4-6.9) x10^3/uL Basophils # (0-0.4) x10^3/uL PT 10.4 (9.4-12.5) SECONDS INR 0.95 (0.8-3.0) D-Dimer 0.31 (0.0-0.50) mg/L Sodium (137-145) mmol/L Potassium (3.5-5.1) mmol/L Chloride (98-107) mmol/L Carbon Dioxide (22-30) mmol/L Anion Gap (5-15) MEQ/L BUN (9-20) mg/dL Creatinine (0.66-1.25) mg/dL Estimated GFR ML/MIN Glucose (74-106) mg/dL Calcium (8.4-10.2) mg/dL Total Bilirubin (0.2-1.3) mg/dL AST (17-59) U/L ALT (0-50) U/L Alkaline Phosphatase (38-126) U/L Troponin I < 0.012 < 0.012 (0.000-0.034) ng/mL Serum Total Protein (6.3-8.2) g/dL Albumin (3.5-5.0) g/dL 04/02/23 04/02/23 Range/Units 23:54 23:54 WBC 10.3 (4.0-10.5) x10^3/uL RBC 4.85 (4.1-5.6) x10^6/uL Hgb 15.0 (12.5-18.0) g/dL Hct 44.1 (42-50) % MCV 90.9 (78-100) fL MCH 30.9 (26-32) pg MCHC 34.0 (32-36) g/dL RDW 11.9 (11.5-14.0) % Plt Count 224 (150-450) x10^3/uL MPV 11.7 H (7.5-11.0) fL Gran % 51.2 (36.0-66.0) % Immature Gran % (Auto) 0.4 (0.00-0.4) % Nucleat RBC Rel Count 0.0 (0.00-0.1) % Eos # (Auto) 0.30 (0-0.5) x10^3/uL Immature Gran # (Auto) 0.04 H (0.00-0.03) x10^3u/L Absolute Lymphs (auto) 3.65 (1.0-4.6) x10^3/uL Absolute Monos (auto) 0.97 (0.0-1.3) x10^3/uL Absolute Nucleated RBC 0.00 (0.00-0.01) x10^3u/L Lymphocytes % 35.6 (24.0-44.0) % Monocytes % 9.5 (0.0-12.0) % Eosinophils % 2.9 (0.00-5.0) % Basophils % 0.4 (0.0-0.4) % Absolute Granulocytes 5.26 (1.4-6.9) x10^3/uL Basophils # 0.04 (0-0.4) x10^3/uL PT (9.4-12.5) SECONDS INR (0.8-3.0) D-Dimer (0.0-0.50) mg/L Sodium 140 (137-145) mmol/L Potassium 3.9 (3.5-5.1) mmol/L Chloride 103 (98-107) mmol/L Carbon Dioxide 25 (22-30) mmol/L Anion Gap 16.2 H (5-15) MEQ/L BUN 15 (9-20) mg/dL Creatinine 0.88 (0.66-1.25) mg/dL Estimated GFR > 60.0 ML/MIN Glucose 88 (74-106) mg/dL Calcium 9.0 (8.4-10.2) mg/dL Total Bilirubin 0.40 (0.2-1.3) mg/dL AST 38 (17-59) U/L ALT 56 H (0-50) U/L Alkaline Phosphatase 83 (38-126) U/L Troponin I (0.000-0.034) ng/mL Serum Total Protein 7.9 (6.3-8.2) g/dL Albumin 4.7 (3.5-5.0) g/dL - Progress Progress: improved Air Movement: good Progress Note: 04/03/23 04:04 This patient's chest x-ray was interpreted by me. There is no evidence of any acute cardiopulmonary process. Patient's 3-hour twelve-lead EKG is unchanged from the first 1 done earlier today. The second twelve-lead EKG was done at 330 2 in the morning on 04/03/2023 patient has a normal sinus rhythm with a heart rate of 69. No evidence of any acute ischemia. There are normal intervals, normal axis and normal QRS. This patient's medical issue is 1 of moderate complexity. The level of complexity and the work-up performed is based on the review of the patient's past medical history, review of the patient's medication list, review of the patient's drug allergy list, history of present illness and physical findings on examination. Work-up includes a CBC, CMP, PT/INR, troponin, D-dimer, twelve- lead EKG and a chest x-ray. I reviewed the results of these studies. Patient has no acute cardiopulmonary issue. He no longer has chest pain. His 3-hour twelve-lead EKG is unchanged from the initial 1. His 3-hour repeat troponin is also normal. Patient is to be discharged home with instructions to call his medical administrative today to make sure that they are aware he had this episode and to obtain a follow-up appointment for further evaluation management. Blood Culture(s) Obtained: No Antibiotics given: No Counseled pt/family regarding: lab results, diagnosis, need for follow-up, rad results Medical Desision Making - Independent Historian Additional History obtained from: Spouse - Diagnostic Testing Diagnostic test were ordered, analyzed, and reviewed by me: Yes Radiological Interpretation: Interpreted by me - Risk of complications Minimal Risk: Minimal risk of morbidity - Departure Departure Disposition: Home Clinical Impression: Chest pain Condition: Stable Critical Care Time: No Referrals: BRI WING [Primary Care Provider] - Follow up/PCP as directed Additional Instructions: Take your medication as prescribed. Follow-up with your care physician and medical administrative today to make arrangements for further evaluation and management an d a follow-up appointment in the next 3 to 5 days.
[2023-04-02] MEDS ORDERED: BABY ASPIRIN 81 MG CHEW PO ONE (23:54)
[2023-04-03 00:21] LABS: Absolute Neutrophil Ct (ANC) 5.26 x10^3/uL (1.4-6.9); BASOPHIL % 0.4 % (0.0-0.4); Basophil (Absolute #) 0.04 x10^3/uL (0-0.4); Eosinophil % 2.9 % (0.00-5.0); Hematocrit 44.1 % (42-50); IMMATURE GRAN # 0.04 x10^3u/L (0.00-0.03); IMMATURE GRAN % 0.4 % (0.00-0.4); Lymphocyte (Absolute #) 3.65 x10^3/uL (1.0-4.6); Lymphocytes % 35.6 % (24.0-44.0); Mean Cell Volume 90.9 fL (78-100); Mean Corpuscular Hemoglobin 30.9 pg (26-32); Mean Platelet Volume 11.7 fL (7.5-11.0); Monocyte (Absolute #) 0.97 x10^3/uL (0.0-1.3); Monocytes % 9.5 % (0.0-12.0); Neutrophil % 51.2 % (36.0-66.0); Platelet Count 224 x10^3/uL (150-450); Red Blood Count 4.85 x10^6/uL (4.1-5.6); Red Cell Distribution Width 11.9 % (11.5-14.0); White Blood Count 10.3 x10^3/uL (4.0-10.5)
[2023-04-03 00:28] LABS: ALBUMIN 4.7 g/dL (3.5-5.0); ALKALINE PHOSPHATASE 83 U/L (38-126); ANION GAP 16.2 MEQ/L (5-15); BLOOD UREA NITROGEN 15 mg/dL (9-20); CHLORIDE 103 mmol/L (98-107); Carbon Dioxide 25 mmol/L (22-30); Creatinine 1 0.88 mg/dL (0.66-1.25); EST GLOMERULAR FILTRATION RATE > 60.0 ML/MIN; Glucose 88 mg/dL (74-106); Potassium 3.9 mmol/L (3.5-5.1); SGOT/AST 38 U/L (17-59); SGPT/ALT 56 U/L (0-50); SODIUM 140 mmol/L (137-145); Total Protein 7.9 g/dL (6.3-8.2)
[2023-04-03 00:29] LABS: D-DIMER QUANTITATIVE 0.31 mg/L (0.0-0.50); INR 0.95 (0.8-3.0); PROTIME 10.4 SECONDS (9.4-12.5)
[2023-04-03 04:21] VITALS: O2SAT 98
[2023-04-03 04:35] VITALS: BP 125/74; PULSE 73
--- NOTE | 2023-04-03 08:38 | XRAY ---
Indication: Chest pain and short of breath. Comparison: February 26, 2023 Portable chest again demonstrates normal heart, lungs, and bony thorax with incidental azygos lobe.
== END 2023-04-03 04:34 | disposition home or self-care (01) ==
LOC: ED 23:27
DX: R07.9 Chest pain, unspecified (principal); R06.02 Shortness of breath; I10 Essential (primary) hypertension; Z79.02 Long term (current) use of antithrombotics/antiplatelets; Z79.899 Other long term (current) drug therapy; Z28.310 Unvaccinated for COVID-19
CPT/HCPCS: 36415; 71045; 80053; 84484; 85025; 85379; 85610; 93005; 93041; 99284; A9270-GY

== ENCOUNTER 2023-10-09 09:39 | Day surgery (SDC) | payer OTHER ==
--- NOTE | 2023-10-09 07:49 | HP ---
DATE OF SURGERY: 10/09/2023 HISTORY OF PRESENT ILLNESS: The patient is a 22-year-old with some rectal bleeding, some dark blood at times. History of grandpa with colon cancer. Some lower abdominal aches and pains comes and goes. PAST MEDICAL HISTORY: Asthma, heartburn, some heart disease in the past. He reportedly had a myocardial infarction in the past. History of pneumonia in the past. PAST SURGICAL HISTORY: Cardiac catheterization in the past. EGD in the past. MEDICATIONS: Plavix, atorvastatin, omeprazole, lisinopril, aspirin. ALLERGIES: NKDA. FAMILY HISTORY: Negative in regards to this problem. SOCIAL HISTORY: Former smoker, occasional alcohol use. REVIEW OF SYSTEMS: Twelve systems reviewed. No chest pain or palpitations. Other systems negative or noncontributory as above and per preadmission questionnaire. PHYSICAL EXAMINATION: Height 5'10". BMI 33. GENERAL: No acute distress. HEENT: Sclerae nonicteric. EOMI. Oral mucous membranes moist. NECK: No JVD. CHEST: Equal excursion, nonlabored breathing. CVS: Regular rate and rhythm. ABDOMEN: Soft. EXTREMITIES: No edema. NEURO: Alert, oriented, moving extremities symmetrically. RECTAL: Deferred timed to endoscopy exam. PSYCH: Appropriate mood and affect. SKIN: Dry. IMPRESSION: History of rectal bleeding unclear etiology, needs colonoscopy as well as some bright, some dark, question of whether he had some melena. The patient needs upper endoscopy to evaluate for gastritis, peptic ulcer disease or esophagitis or other etiology. He also needs colonoscopy to evaluate for neoplasia, colitis or other etiology. Risks and benefits explained in detail including bleeding or infection, risk of bowel injury or perforation, risk of missed or nondiagnosis or incomplete exam possibly requiring barium enema, barium swallow, other studies or procedures. General risk of anesthesia or sedation but not limited to, consent obtained. Will hold thinners preoperatively and proceed. Otherwise continue medications for heart disease, asthma and reflux. Will schedule outpatient EGD and colonoscopy.
[2023-10-09] MEDS ORDERED: Lactated Ringers 1,000 ML IV ONE (09:47)
[2023-10-09] MEDS ORDERED: Lactated Ringers 1,000 ML IV SCH (10:00)
[2023-10-09 10:29] LABS: Amphetamine,Urine NEGATIVE (NEGATIVE); Barbiturate,Urine NEGATIVE (NEGATIVE); Benzodiazepine,Urine NEGATIVE (NEGATIVE); Cocaine,Urine NEGATIVE (NEGATIVE); Methadone,Urine NEGATIVE (NEGATIVE); Opiate,Urine NEGATIVE (NEGATIVE); PCP,Urine NEGATIVE (NEGATIVE); THC,Urine POSITIVE (NEGATIVE)
[2023-10-09] MEDS ORDERED: SUBLIMAZE 100 MCG/2 ML ONE (12:58)
[2023-10-09] MEDS ORDERED: DIPRIVAN 200 MG/20 ML IV ONE ×2 (12:58→13:17)
[2023-10-09] MEDS ORDERED: Versed 2 MG/2 ML Injection ONE (12:59)
[2023-10-09 13:57] VITALS: RESP 18; TEMP 97.6
[2023-10-09 14:13] VITALS: BP 119/75; PULSE 82; O2SAT 95
--- NOTE | 2023-10-10 10:12 | OP ---
SURGERY DATE/TIME: 10/09/2023 1259 PREOPERATIVE DIAGNOSIS: History of some rectal bleeding, history of some vague lower abdominal aches, question of melena. Family history of colon cancer, need for upper and lower endoscopy. POSTOPERATIVE DIAGNOSES: 1) Mild gastric erythema versus early gastritis. 2) Fair bowel prep. 3) Fair to normal appearing terminal ileum. 4) Small sigmoid colon polyp. PROCEDURES: 1) EGD with cold biopsy of antrum for Helicobacter pylori. 2) Colonoscopy to terminal ileum. 3) Retrograde ileoscopy. 4) Random cold biopsies of ileum to evaluate for microscopic ileitis. 5) Random cold biopsies of colon to evaluate from microscopic colitis. 6) Hot biopsy polypectomy very small, early polyp versus hyperplastic lesion sigmoid colon. SURGEON: Dr. Eric Trinidad. ANESTHESIA: MAC. ESTIMATED BLOOD LOSS: Minimal. INDICATIONS: As noted above. Risks and benefits explained in detail and not limited to and consent obtained. DESCRIPTION OF PROCEDURE AND FINDINGS: The patient is taken to endoscopy. MAC anesthesia introduced. After official time out and no disagreement with planned procedure, bite block positioned. Video gastroscope easily passed down the esophagus to the patent pylorus to the junction of the third and fourth portion of the duodenum. The duodenum fairly unremarkable. No signs of any ulcers. No signs of any obvious GI bleeding source. Back in the stomach, he did have mild gastric erythema. Whether he had some transient gastritis that improved or not, cold biopsy taken for Helicobacter pylori. Good hemostasis noted. On retroflex, gastroesophageal junction fairly snug against the scope. No signs of any large hiatal hernia. The scope is straightened. Gastroesophageal junction Z-line fairly crisp. The patient was coughing and having some retching. No signs of any obvious esophageal masses or mucosal lesions on withdrawal of the scope. The scope is withdrawn. Attention then turned to colonoscopy. Digital rectal exam did not reveal any rectal masses. He did have some minimal grade 1 internal hemorrhoids. Video colonoscope inserted and passed up through the slightly tortuous sigmoid, descending, transverse, ascending colon. With external pressure was passed around to the cecum up to the terminal ileum. Retrograde ileoscopy performed which was grossly unremarkable. Given his symptom complaints of vague lower abdominal ache, cold biopsy taken in the ileum to evaluate for microscopic ileitis. The scope was then carefully withdrawn, photo documented appendiceal orifice and valve. The scope is slowly and carefully withdrawn. Prep overall was fair with a little bit of foamy, liquidy stool that was suctioned and irrigated as well as possible but slightly limiting exam for small lesions. Some random cold biopsies of the colon to evaluate for microscopic colitis. There is no evidence of any macroscopic inflammation. The scope is carefully withdrawn. Small polyp in the sigmoid colon 2 mm removed with hot biopsy polypectomy. Good hemostasis noted. Otherwise, he had minimal internal hemorrhoids. No signs of any large polyps, masses or obstructing lesions. Whether he had transient colitis or transient inflammation of his hemorrhoids, I do not see any large polyps, masses or lesions to account for his rectal bleeding at this time.
== END 2023-10-09 14:15 | disposition home or self-care (01) ==
LOC: SDC 09:39
PROVIDERS: ATTEND Surgery
DX: Z87.19 Personal history of other diseases of the digestive system (principal); Z80.0 Family history of malignant neoplasm of digestive organs; K29.70 Gastritis, unspecified, without bleeding; K63.5 Polyp of colon; K64.8 Other hemorrhoids
CPT/HCPCS: 80307; J2250; J2704; J3010

== ENCOUNTER 2023-11-09 10:03 | Day surgery (SDC) | payer OTHER ==
--- NOTE | 2023-11-09 09:00 | HP ---
DATE OF SURGERY: 11/09/2023 HISTORY OF PRESENT ILLNESS: The patient is a 23-year-old had some abdominal aches and pains. He had some nausea and vomiting, a little better with omeprazole. Upper endoscopy did not show any ulcers. Ultrasound no stones. HIDA ejection fraction 15%. It was felt he had acute exacerbation of chronic cholecystitis/symptomatic biliary dyskinesia. I recommend cholecystectomy. PAST MEDICAL HISTORY: Heartburn, asthma, heart disease and myocardial infarction in the past. He had some pneumonia. PAST SURGICAL HISTORY: Cardiac catheterization in the past. MEDICATIONS: Plavix, atorvastatin for hyperlipidemia. Omeprazole, aspirin. ALLERGIES: NKDA. FAMILY HISTORY: Negative in regards to this problem. SOCIAL HISTORY: Former smoker. Occasional alcohol use. REVIEW OF SYSTEMS: Twelve systems reviewed. No chest pain or palpitations. Other systems negative or noncontributory as above and per preadmission questionnaire. PHYSICAL EXAMINATION: Height 5'10". BMI 33. GENERAL: No acute distress. HEENT: Sclerae nonicteric. EOMI. Oral mucous membranes moist. NECK: No JVD. CHEST: Equal excursion, nonlabored breathing. CVS: Regular rate and rhythm. ABDOMEN: Soft, some mild midline tenderness. No rebound. No guarding. No peritoneal signs. EXTREMITIES: No significant edema. NEURO: Alert, oriented, moving extremities symmetrically. PSYCH: Appropriate mood and affect. IMPRESSION: Acute exacerbation chronic cholecystitis, symptomatic biliary dyskinesia. I feel the patient would benefit from cholecystectomy. Risks and benefits explained in detail including bleeding or infection, risk of trocar injury or hernia, risk of bile, bladder or blood vessel injury, risk of bile leak, bile duct injury, retained stone or sludge possibly requiring further procedure either open or ERCP, general risk of anesthesia, deep venous thrombosis, pulmonary embolism, pneumonia, perioperative risk of aches, pains, bloating, constipation and/or loose stools possibly even chronic in nature, remote risk of pulmonary embolism. Consent obtained. Will proceed with laparoscopic cholecystectomy possible open as an outpatient. Otherwise continue medications for history of heart disease. Hold thinners preoperative. He understands and agrees to the planned procedure will proceed with laparoscopic cholecystectomy possible open as an outpatient.
[2023-11-09] MEDS ORDERED: Lactated Ringers 1,000 ML IV SCH (10:30)
[2023-11-09 10:31] LABS: Amphetamine,Urine NEGATIVE (NEGATIVE); Barbiturate,Urine NEGATIVE (NEGATIVE); Benzodiazepine,Urine NEGATIVE (NEGATIVE); Cocaine,Urine NEGATIVE (NEGATIVE); Methadone,Urine NEGATIVE (NEGATIVE); Opiate,Urine NEGATIVE (NEGATIVE); PCP,Urine NEGATIVE (NEGATIVE); THC,Urine POSITIVE (NEGATIVE)
[2023-11-09] MEDS ORDERED: MEFOXIN 2 GM PREMIX** 2 GM/50 ML ML IV ONE (10:37)
[2023-11-09] MEDS ORDERED: Lactated Ringers 1,000 ML IV ONE (10:37)
[2023-11-09 10:57] LABS: Hematocrit 43.8 % (42-50); Hemoglobin 14.9 g/dL (12.5-18.0); Mean Cell Volume 90.1 fL (78-100); Mean Corpuscular Hemoglobin 30.7 pg (26-32); Mean Platelet Volume 11.3 fL (7.5-11.0); Platelet Count 207 x10^3/uL (150-450); Red Blood Count 4.86 x10^6/uL (4.1-5.6); Red Cell Distribution Width 11.9 % (11.5-14.0); White Blood Count 8.8 x10^3/uL (4.0-10.5)
[2023-11-09] MEDS ORDERED: MEFOXIN 2 GM PREMIX** 2 GM/50 ML ML IV SCH (11:00)
[2023-11-09 11:02] VITALS: RESP 16
[2023-11-09 11:14] LABS: ALBUMIN 4.3 g/dL (3.5-5.0); ANION GAP 12.3 MEQ/L (5-15); BILIRUBIN,TOTAL 0.6 mg/dL (0.2-1.3); Calcium 9.2 mg/dL (8.4-10.2); Creatinine 1 0.69 mg/dL (0.66-1.25); EST GLOMERULAR FILTRATION RATE 133.4 ML/MIN; Potassium 4.2 mmol/L (3.5-5.1); Total Protein 7.3 g/dL (6.3-8.2)
[2023-11-09] MEDS ORDERED: Sensorcaine 0.25% 10 ML ONE (11:50)
[2023-11-09] MEDS ORDERED: Pepcid 20 MG VIAL IV ONE (11:53)
[2023-11-09] MEDS ORDERED: SUBLIMAZE 100 MCG/2 ML ONE ×2 (12:01→12:33)
[2023-11-09] MEDS ORDERED: Zofran 4 MG/2 ML VIAL ONE ×2 (12:01→13:56)
[2023-11-09] MEDS ORDERED: DIPRIVAN 200 MG/20 ML IV ONE (12:01)
[2023-11-09] MEDS ORDERED: TORAdol 30 mg Injection ONE (12:01)
[2023-11-09] MEDS ORDERED: Decadron 4 MG INJ ONE (12:01)
[2023-11-09] MEDS ORDERED: Zemuron 100 MG/10 ML ONE ×2 (12:01→12:33)
[2023-11-09] MEDS ORDERED: Xylocaine-Mpf 2% 5 Ml Vial ONE (12:01)
[2023-11-09] MEDS ORDERED: BRIDION 200MG/2ML IV ONE (12:01)
[2023-11-09] MEDS ORDERED: Lactated Ringers 2,000 ML IV ONE (12:26)
[2023-11-09] MEDS ORDERED: LOPRESSOR INJECTION IV ONE (12:54)
[2023-11-09] MEDS ORDERED: TRANDATE 20 MG/4 ML SYRINGE IV ONE (14:29)
--- NOTE | 2023-11-09 15:07 | OP ---
SURGERY DATE/TIME: 11/09/2023 1200 PREOPERATIVE DIAGNOSIS: Acute exacerbation of chronic cholecystitis, symptomatic biliary dyskinesia. POSTOPERATIVE DIAGNOSIS: Acute exacerbation of chronic cholecystitis, symptomatic biliary dyskinesia. PROCEDURE: Laparoscopic cholecystectomy. SURGEON: Dr. Gaurav Trinidad. ANESTHESIA: General. ESTIMATED BLOOD LOSS: Minimal. INDICATIONS: As noted above. Risks and benefits explained in detail but not limited to and consent obtained. DESCRIPTION OF PROCEDURE AND FINDINGS: The patient was taken to the operating room. General anesthesia induced. Abdomen prepped and draped in usual sterile fashion. After official time out and no disagreement with planned procedure, a transverse incision made in the supraumbilical area. Fascia grasped, pulled upward. Veress needle inserted and tested with saline. Pneumoperitoneum accomplished insufflating opening pressure of 0-15. A 5 mm bladeless port and camera were inserted without difficulty followed by two - 5 mm right upper quadrant ports and 11 mm epigastric port. The gallbladder is grasped. It had chronic inflammation. Dissected posterior, lateral to anterior fashion slowly and carefully the cystic duct and infundibular junction carefully well skeletonized until the critical view was obtained both anteriorly and posteriorly. Once this is accomplished, the cystic duct and cystic artery were clipped x3 and divided in the usual fashion. It should be noted that the patient was quite vascular and still had oozing with the clip in place, still had pulsatile ooze from cystic artery. Therefore it took some time but grasping it another clip was placed at the vascular fat pad and gently pulled upward away from the area of the common duct and clip mortgage closing clerk. Good hemostasis noted. Copious amount of irrigation accomplished lateral to the liver irrigating clear. The gallbladder is then carefully dissected free from its dense concrete attachments to the liver bed. Staying directly on the gallbladder wall clipping additional oozing side branches off the cystic artery and vein as necessary. Just prior to releasing from final attachments to the anterior edge of the liver, the liver bed re-inspected. Clips noted in place in the cystic duct and cystic artery stumps. No signs of any active bleeding or bile leakage. It was felt there is no benefit of drain placement. The gallbladder was released from final attachments to anterior edge of the liver and placed in the provided sac pulled up and out the epigastric wound just slightly spread with a clamp. Gallbladder and bag pulled free and passed off. The fascial defect was closed with puncture closure device with #1 Vicryl. Pneumoperitoneum decompressed. Copious irrigation irrigating until clear. Skin incision closed with 4-0 Vicryl. Steri-Strips and sterile dressing applied. The patient tolerated the procedure well. There were no immediate complications. He was transferred to the recovery room in stable condition. Findings discussed with the family out in the waiting area including the fact that he had been quite vascular and required an additional clip on vascular pedicle but had good hemostasis during the procedure. If they have any questions they should call or return otherwise I will see him back in the office in a week or two.
[2023-11-09] MEDS ORDERED: Reglan 10 MG/2 ML ONE (15:11)
[2023-11-09 15:28] VITALS: TEMP 98.4
[2023-11-09 15:38] VITALS: BP 119/84; PULSE 81; O2SAT 95
== END 2023-11-09 15:35 | disposition home or self-care (01) ==
LOC: SDC 10:03 → EDSTATUS 12:57 → SDC 15:35
PROVIDERS: ATTEND Surgery
DX: K81.1 Chronic cholecystitis (principal); K82.8 Other specified diseases of gallbladder; I51.9 Heart disease, unspecified
CPT/HCPCS: 36415; 80053; 80307; 85027; 93005; J0694; J1100; J1885; J2405; J2704; J3010

== ENCOUNTER 2023-12-12 15:15 | Emergency (ER) | payer OTHER ==
[2023-12-12] MEDS ORDERED: HEPARIN 5000 UNITS/0.5 ML (HIGH RISK MED) IV STA (15:29)
[2023-12-12] MEDS ORDERED: BABY ASPIRIN 81 MG CHEW PO ONE (15:30)
[2023-12-12] MEDS ORDERED: Heparin 25,000 units/D5W: USE ORDER SET PROTO 25,000 UNITS/250 ML BAG IV SCH (15:30)
[2023-12-12] MEDS ORDERED: Zofran 4 MG/2 ML VIAL IV ONE ×2 (15:31→15:33)
[2023-12-12] MEDS ORDERED: HEPARIN 5000 UNITS/0.5 ML (HIGH RISK MED) ONE (15:32)
[2023-12-12] MEDS ORDERED: Zofran 4 MG/2 ML VIAL ONE (15:32)
[2023-12-12] MEDS ORDERED: BABY ASPIRIN 81 MG CHEW ONE (15:32)
[2023-12-12 15:37] VITALS: BP 131/97; PULSE 88; RESP 26; TEMP 98.3; O2SAT 99
--- NOTE | 2023-12-12 15:43 | ERPHSYRPT ---
- History of Present Illness Time Seen by Provider: 12/12/23 15:30 Historian: patient Exam Limitations: no limitations Patient Subjective Stated Complaint: pt states he was going to the bathroom when he began to have chest pain Triage Nursing Assessment: pt ambulated into the er; pt is axo x4; c/o chest pain; pt states 7/10 pain to chest; clear apical heart tone; clear lung sounds in all lobes; c/o N/V; pt is diaphoretic; no edema present; strong rojelio radial pulses; strong rojelio pedal pulses; SOB; vitals wnl Physician History: 23-year-old male presents to our ED for evaluation of chest pain. Patient states he was going to the restroom when he felt severe substernal chest pain associate with nausea vomiting or diaphoresis. Patient has a history of [place]. Patient reported [place] last February. Per family patient has a coronary artery lesion at 40%. The exact artery involved is unclear at this point. He was advised that he would require medical management. Patient has been noncompliant with his medications for over a month. Symptoms are moderate to severe. Patient rates his chest pain 7 out of 10. No trauma no fevers. Patient voices no other complaints or concerns at this time. Portions of this note were created with voice recognition technology. There may be grammatical, spelling, punctuation or sound alike errors Timing/Duration: today Activities at Onset: activity Quality: aching Location: substernal Chest Pain Radiation: no radiation Severity of Pain-Max: severe Severity of Pain-Current: moderate Modifying Factors: Improves With: nothing Associated Symptoms: denies symptoms Prior Chest Pain/Cardiac Workup: cardiac cath Nitro Today/Relief: no nitro taken today Aspirin Treatment Today: no aspirin today Allergies/Adverse Reactions: No Known Drug Allergies Allergy (Verified 12/12/23 15:22) Home Medications: Omeprazole 20 mg PO DAILY 02/26/23 [History] Atorvastatin Calcium 40 mg PO QHS 04/02/23 [History] lisinopriL [Zestril] 2.5 mg PO DAILY 04/02/23 [History] Isosorbide Mononitrate 30 mg [Imdur 30 MG] 30 mg PO DAILY 11/09/23 [History] Hx Tetanus, Diphtheria Vaccination/Date Given: No (unknown) Hx Influenza Vaccination/Date Given: No Hx Pneumococcal Vaccination/Date Given: No Travel Risk - International Travel Have you traveled outside of the country in past 3 weeks: No - Coronavirus Screening Are you exhibiting any of the following symptoms?: No Close contact with a COVID-19 positive Pt in past 14-21 Days: No - Vaccine Status Have you recieved a Covid-19 vaccination: No - Review of Systems Constitutional: No Symptoms, No Fever, No Chills Eyes: No Symptoms Ears, Nose, & Throat: No Symptoms Respiratory: No Symptoms, No Cough, No Dyspnea Cardiac: No Symptoms, No Chest Pain, No Edema, No Syncope Abdominal/Gastrointestinal: No Symptoms, No Abdominal Pain, No Nausea, No Vomiting, No Diarrhea Genitourinary Symptoms: No Symptoms, No Dysuria Musculoskeletal: No Symptoms, No Back Pain, No Neck Pain Skin: No Symptoms, No Rash Neurological: No Symptoms, No Dizziness, No Focal Weakness, No Sensory Changes Psychological: No Symptoms Endocrine: No Symptoms Immunological/Allergic: No Symptoms All Other Systems: Reviewed and Negative - Past Medical History Pertinent Past Medical History: Yes Neurological History: No Pertinent History ENT History: No Pertinent History Cardiac History: Coronary Artery Disease, Hypertension, Myocardial Infarction ([place]) Respiratory History: Asthma Endocrine Medical History: No Pertinent History Musculoskeletal History: No Pertinent History GI Medical History: GERD, Gallbladder Disease History: No Pertinent History Psycho-Social History: No Pertinent History Male Reproductive Disorders: No Pertinent History Other Medical History: skin cancer when 4 years old - removed - Past Surgical History Past Surgical History: Yes Neuro Surgical History: No Pertinent History Cardiac: Cardiac Catheterization Respiratory: No Pertinent History Gastrointestinal: Cholecystectomy Genitourinary: No Pertinent History Musculoskeletal: No Pertinent History Male Surgical History: No Pertinent History Other Surgical History: skin cancer, endoscope of my stomach, GOSIA, - Social History Smoking Status: Former smoker How long have you smoked: 3 years Exposure to second hand smoke: No Drug Use: marijuana Patient Lives Alone: No Significant Family History: heart disease - Nursing Vital Signs Nursing Vital Signs: Initial Vital Signs Temperature 98.3 F 12/12/23 15:20 Pulse Rate 88 12/12/23 15:20 Respiratory Rate 26 H 12/12/23 15:20 Blood Pressure 131/97 12/12/23 15:20 O2 Sat by Pulse Oximetry 99 12/12/23 15:20 Pain Scale Pain Intensity 7 - Physical Exam General Appearance: no apparent distress, alert Eye Exam: PERRL/EOMI, eyes nml inspection Ears, Nose, Throat Exam: normal ENT inspection, moist mucous membranes Neck Exam: normal inspection, non-tender, supple, full range of motion Respiratory Exam: normal breath sounds, lungs clear, No respiratory distress Cardiovascular Exam: regular rate/rhythm, normal heart sounds Gastrointestinal/Abdomen Exam: soft, No tenderness, No mass Back Exam: normal inspection, No CVA tenderness, No vertebral tenderness Extremity Exam: normal inspection, normal range of motion Neurologic Exam: alert, oriented x 3, cooperative, normal mood/affect, sensation nml, No motor deficits Skin Exam: normal color, warm, dry SpO2 Interpretation: normal SpO2: 99 O2 Delivery: Room Air - Course Nursing assessment & vital signs reviewed: Yes - Radiology Exams Chest X-ray Interpretation: Interpreted by me (No acute findings) Ordered Tests: Active Orders 24 hr Category Date Time Status Website Project Manager STAT Care 12/12/23 15:27 Active EKG-ER Only STAT Care 12/12/23 15:26 Active IV Insertion STAT Care 12/12/23 15:26 Active Pulse Oximetry (ED) STAT Care 12/12/23 15:26 Active CHEST 1 VIEW (PORTABLE) Stat Exams 12/12/23 15:27 Taken CBC Q48H Lab 12/13/23 06:00 Ordered CBC Q48H Lab 12/15/23 06:00 Ordered CBC Q48H Lab 12/17/23 06:00 Ordered CBC Q48H Lab 12/19/23 06:00 Ordered CBC Q48H Lab 12/21/23 06:00 Ordered CBC Q48H Lab 12/23/23 06:00 Ordered CBC Q48H Lab 12/25/23 06:00 Ordered CBC W DIFF Stat Lab 12/12/23 15:26 Ordered CMP Stat Lab 12/12/23 15:26 Ordered D-DIMER QUANTITATIVE Stat Lab 12/12/23 15:26 Ordered NT PRO BNPII Stat Lab 12/12/23 15:26 Ordered PROTIME WITH INR Stat Lab 12/12/23 15:26 Ordered PTT Q4H Lab 12/13/23 03:30 Ordered PTT Q4H Lab 12/13/23 07:30 Ordered PTT Q4H Lab 12/13/23 11:30 Ordered PTT Q4H Lab 12/13/23 15:30 Ordered PTT Q4H Lab 12/13/23 19:30 Ordered PTT Q4H Lab 12/13/23 23:30 Ordered PTT Q4H Lab 12/14/23 03:30 Ordered PTT Q4H Lab 12/14/23 07:30 Ordered PTT Q4H Lab 12/14/23 11:30 Ordered PTT Stat Lab 12/12/23 15:26 Ordered TROPONIN Q4H Lab 12/12/23 15:30 Ordered TROPONIN Q4H Lab 12/12/23 19:30 Ordered TROPONIN Q4H Lab 12/12/23 23:30 Ordered UA W/RFX UR CULTURE Stat Lab 12/12/23 15:26 Ordered Urine Triage Profile Stat Lab 12/12/23 15:27 Ordered Medication Summary Generic Name Dose Route Start Last Admin Trade Name Freq PRN Reason Stop Dose Admin Heparin Sodium/Dextrose 25,000 units in 250 mls @ 0 mls/hr 12/12/23 15:30 Heparin 25,000 Units/D5w: Use Order Set Natalie IV 01/11/24 15:29 SHANELLE Protocol 12 UNITS/KG/HR Discontinued Medications Generic Name Dose Route Start Last Admin Trade Name Freq PRN Reason Stop Dose Admin Aspirin 324 mg 12/12/23 15:30 12/12/23 15:36 Aspirin 81 Mg Tab.Chew PO 12/12/23 15:31 324 mg STAT ONE Administration Aspirin Confirm 12/12/23 15:32 Aspirin 81 Mg Tab.Chew Administered 12/12/23 15:33 Dose 324 mg .ROUTE .STK-MED ONE Heparin Sodium (Beef Lung) 5,000 unit 12/12/23 15:29 12/12/23 15:35 Heparin 5000 Units/0.5 Ml 5,000 Unit/0.5 Ml Syr IV 12/12/23 15:30 5,000 unit STAT STA Administration Heparin Sodium (Beef Lung) Confirm 12/12/23 15:32 Heparin 5000 Units/0.5 Ml 5,000 Unit/0.5 Ml Syr Administered 12/12/23 15:33 Dose 5,000 unit .ROUTE .STK-MED ONE Ondansetron HCl 4 mg 12/12/23 15:31 12/12/23 15:34 Ondansetron Hcl 4 Mg/2 Ml Vial IV 12/12/23 15:32 4 mg STAT ONE Administration Ondansetron HCl Confirm 12/12/23 15:32 Ondansetron Hcl 4 Mg/2 Ml Vial Administered 12/12/23 15:33 Dose 4 mg .ROUTE .STK-MED ONE Ondansetron HCl 4 mg 12/12/23 15:33 12/12/23 15:37 Ondansetron Hcl 4 Mg/2 Ml Vial IV 12/12/23 15:34 Not Given STAT ONE - Progress Progress: improved Air Movement: good Progress Note: Dr. Dr. Vazquez received the faxed EKG reviewed the findings and accepted transfer to [facility] at 3:40 PM. 12/12/23 15:40 23-year-old male presents to our ED with complaint of chest pain. Patient has a history of an [place]. Noncompliant with his home medication regimen. EKG reveals inferior wall ST segment elevation. Patient received aspirin and heparin Zofran for nausea and vomiting. Case discussed with Dr. Vazquez ER physician at [facility] accepts transfer. Patient transferred to [facility] in stable condition. Morphine ordered however patient left prior to morphine administration. Plan of care discussed with patient. He agrees to transfer to [facility] for further evaluation and treatment. Portions of this note were created with voice recognition technology. There may be grammatical, spelling, punctuation or sound alike errors Complexity problem addressed is high Critical care time 30 minutes Complexity of data reviewed and analyzed is extensive. Test ordered test reviewed. Results analyzed and correlated clinically with history and physical examination. Dr. Sneed independently reviewed the EKG as well as a chest x-ray. Management discussed with ER physician Dr. Kruse at [facility] Risk of complication and or risk of morbidity/mortality of patient management is high. Patient requires hospitalization/transfer to higher level of care Vital stable. Time spent to transfer patient is approximately 10 minutes. Plan of care established for shared decision making. No social determinants of health present impede follow-up. Portions of this note were created with voice recognition technology. There may be grammatical, spelling, punctuation or sound alike errors 12/12/23 15:52 Blood Culture(s) Obtained: No Antibiotics given: No Discussed with DrSae: Other Counseled pt/family regarding: lab results, diagnosis - Departure Departure Disposition: Transfer Clinical Impression: STEMI (ST elevation myocardial infarction), ACS (acute coronary syndrome), Noncompliance with medication regimen Condition: Stable Critical Care Time: Yes Critical Care Time(excluding separately billable procedures): Critical 30-74 mins Referrals: BRI WING [Primary Care Provider] - Follow up/PCP as directed
[2023-12-12] MEDS ORDERED: MORPHINE SULFATE 4 MG INJ IV ONE (15:49)
--- NOTE | 2023-12-12 16:19 | XRAY ---
Indication: Pain. Vomiting. Comparison: April 03, 2023 Portable chest demonstrates new faint left midlung subsegmental atelectasis/scarring. Remaining heart, lungs, and bony thorax normal again with incidental azygos lobe.
== END 2023-12-12 15:50 | disposition short-term general hospital (02) ==
LOC: ED 15:15
DX: I21.3 ST elevation (STEMI) myocardial infarction of unspecified site (principal); I24.9 Acute ischemic heart disease, unspecified; Z91.148 Patient's other noncompliance with medication regimen for other reason; R07.9 Chest pain, unspecified; I10 Essential (primary) hypertension; Z79.899 Other long term (current) drug therapy; Z28.310 Unvaccinated for COVID-19
CPT/HCPCS: 36000; 71045; 93005; 93041; 94760; 96374; 96375; 99285; J1644; J2405; A9270-GY

== ENCOUNTER 2023-12-17 16:15 | Observation (INO) | payer OTHER ==
[2023-12-17] MEDS ORDERED: Reglan 10 MG/2 ML IV ONE (17:01)
[2023-12-17] MEDS ORDERED: Pepcid 20 MG VIAL IV ONE ×2 (17:01→17:28)
[2023-12-17] MEDS ORDERED: PROTONIX 40 MG IV IV ONE ×2 (17:01→17:28)
[2023-12-17 17:13] LABS: Absolute Neutrophil Ct (ANC) 5.31 x10^3/uL (1.4-6.9); BASOPHIL % 0.5 % (0.0-0.4); Basophil (Absolute #) 0.04 x10^3/uL (0-0.4); Eosinophil % 0.7 % (0.00-5.0); Eosinophil (Absolute #) 0.06 x10^3/uL (0-0.5); Hematocrit 40.9 % (42-50); Hemoglobin 14.3 g/dL (12.5-18.0); IMMATURE GRAN # 0.09 x10^3u/L (0.00-0.03); IMMATURE GRAN % 1.1 % (0.00-0.4); Lymphocyte (Absolute #) 2.06 x10^3/uL (1.0-4.6); Lymphocytes % 24.6 % (24.0-44.0); Mean Cell Volume 88.9 fL (78-100); Mean Corpuscular Hemoglobin 31.1 pg (26-32); Mean Platelet Volume 11.2 fL (7.5-11.0); Monocyte (Absolute #) 0.81 x10^3/uL (0.0-1.3); Monocytes % 9.7 % (0.0-12.0); Neutrophil % 63.4 % (36.0-66.0); Platelet Count 250 x10^3/uL (150-450); Red Cell Distribution Width 12.3 % (11.5-14.0); White Blood Count 8.4 x10^3/uL (4.0-10.5)
[2023-12-17] MEDS ORDERED: Sodium Chloride 0.9% 1000 ML 1,000 ML IV SCH (17:15)
[2023-12-17] MEDS ORDERED: Sodium Chloride 0.9% 1000 ML 1,000 ML ONE (17:28)
[2023-12-17] MEDS ORDERED: Reglan 10 MG/2 ML ONE (17:28)
--- NOTE | 2023-12-17 17:48 | ERPHSYRPT ---
- History of Present Illness Historian: patient, family Exam Limitations: no limitations Patient Subjective Stated Complaint: pt here today for vomiting one episode after getting up today at about 1600. he states it had blood in emesis, he states he had hes gallbladder out in october and had a mi with a heart stent on monday, pt denies pain or fever Triage Nursing Assessment: pt walked in. resp easy, skin warm and dry,pale, chest clear, abd soft, bs heard, no edema noted, Hx Tetanus, Diphtheria Vaccination/Date Given: No (unknown) Hx Influenza Vaccination/Date Given: No Hx Pneumococcal Vaccination/Date Given: No Immunizations Up to Date: Yes <THOMAS BELTRAN - Last Filed: 12/17/23 18:53> <ANITHA ROMERO - Last Filed: 12/17/23 21:24> - History of Present Illness Time Seen by Provider: 12/17/23 17:46 Physician History: Patient is 23-year-old male with significant past medical history of recent myocardial infarction approximately 1 week ago afterwards patient underwent cardiac catheterization and has 1 stent placement was done. Patient was put on Plavix and other blood pressure medication including levofloxacin for possible H. pylori infection. 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 Approximately 1 hour ago he woke up with severe epigastric abdominal pain so he came to the emergency room. Abdominal pain is associated with nausea and vomiting. Patient denies any chest pain. Patient denies any blood in the stool or urine. (THOMAS BELTRAN) Allergies/Adverse Reactions: No Known Drug Allergies Allergy (Verified 12/17/23 16:37) Home Medications: Omeprazole 20 mg PO DAILY 02/26/23 [History] Atorvastatin Calcium 40 mg PO QHS 04/02/23 [History] lisinopriL [Zestril] 2.5 mg PO DAILY 04/02/23 [History] Isosorbide Mononitrate 30 mg [Imdur 30 MG] 30 mg PO DAILY 11/09/23 [History] Travel Risk - International Travel Have you traveled outside of the country in past 3 weeks: No - Coronavirus Screening Are you exhibiting any of the following symptoms?: No Close contact with a COVID-19 positive Pt in past 14-21 Days: No - Vaccine Status Have you recieved a Covid-19 vaccination: No <RUBY,THOMAS - Last Filed: 12/17/23 18:53> - Past Medical History Pertinent Past Medical History: Yes Neurological History: No Pertinent History ENT History: No Pertinent History Cardiac History: Coronary Artery Disease, Hypertension, Myocardial Infarction ([place]) Respiratory History: Asthma Endocrine Medical History: No Pertinent History Musculoskeletal History: No Pertinent History GI Medical History: GERD, Gallbladder Disease History: No Pertinent History Psycho-Social History: No Pertinent History Male Reproductive Disorders: No Pertinent History Other Medical History: skin cancer when 4 years old - removed - Past Surgical History Past Surgical History: Yes Neuro Surgical History: No Pertinent History Cardiac: Cardiac Catheterization, Cardiac Stent Respiratory: No Pertinent History Gastrointestinal: Cholecystectomy Genitourinary: No Pertinent History Musculoskeletal: No Pertinent History Male Surgical History: No Pertinent History Other Surgical History: skin cancer, endoscope of my stomach, GOSIA, - Social History Smoking Status: Former smoker How long have you smoked: 3 years Exposure to second hand smoke: No Drug Use: marijuana Patient Lives Alone: No Significant Family History: heart disease <RUBY,THOMAS - Last Filed: 12/17/23 18:53> - Physical Exam SpO2: 95 <RUBY,THOMAS - Last Filed: 12/17/23 18:53> - Nursing Vital Signs Nursing Vital Signs: Initial Vital Signs Temperature 96.8 F 12/17/23 16:40 Pulse Rate 98 H 12/17/23 16:40 Respiratory Rate 22 12/17/23 16:40 Blood Pressure 107/81 12/17/23 16:40 O2 Sat by Pulse Oximetry 97 12/17/23 16:40 Pain Scale Pain Intensity 3 Ordered Tests: Active Orders 24 hr Category Date Time Status IV Insertion STAT Care 12/17/23 17:01 Active AMYLASE Stat Lab 12/17/23 17:10 Completed CBC W DIFF Stat Lab 12/17/23 17:10 Completed CMP Stat Lab 12/17/23 17:10 Completed LIPASE Stat Lab 12/17/23 17:10 Completed TROPONIN Q4H Lab 12/17/23 20:20 Completed TROPONIN Q4H Lab 12/17/23 23:45 Ordered TROPONIN Stat Lab 12/17/23 17:10 Completed Medication Summary Generic Name Dose Route Start Last Admin Trade Name Freq PRN Reason Stop Dose Admin Sodium Chloride 1,000 mls @ 50 mls/hr 12/17/23 17:15 12/17/23 17:32 Sodium Chloride 0.9% 1000 Ml IV 01/16/24 17:14 50 mls/hr .Q20H SHANELLE Administration Discontinued Medications Generic Name Dose Route Start Last Admin Trade Name Freq PRN Reason Stop Dose Admin Famotidine 20 mg 12/17/23 17:01 12/17/23 17:36 Famotidine 20 Mg/1 Vial IV 12/17/23 17:02 20 mg STAT ONE Administration Famotidine Confirm 12/17/23 17:28 Famotidine 20 Mg/1 Vial Administered 12/17/23 17:29 Dose 20 mg IV .STK-MED ONE Metoclopramide HCl 10 mg 12/17/23 17:01 12/17/23 17:35 Metoclopramide Hcl 10 Mg/2 Ml Vial IV 12/17/23 17:02 10 mg STAT ONE Administration Metoclopramide HCl Confirm 12/17/23 17:28 Metoclopramide Hcl 10 Mg/2 Ml Vial Administered 12/17/23 17:29 Dose 10 mg .ROUTE .STK-MED ONE Pantoprazole Sodium 40 mg 12/17/23 17:01 12/17/23 17:37 Pantoprazole 40 Mg Vial IV 12/17/23 17:02 40 mg STAT ONE Administration Pantoprazole Sodium Confirm 12/17/23 17:28 Pantoprazole 40 Mg Vial Administered 12/17/23 17:29 Dose 40 mg IV .STK-MED ONE Lab/Rad Data: Laboratory Result Diagrams 12/17/23 17:10 12/17/23 17:10 Laboratory Results 12/17/23 12/17/23 12/17/23 Range/Units 20:20 17:10 17:10 WBC 8.4 (4.0-10.5) x10^3/uL RBC 4.60 (4.1-5.6) x10^6/uL Hgb 14.3 (12.5-18.0) g/dL Hct 40.9 L (42-50) % MCV 88.9 (78-100) fL MCH 31.1 (26-32) pg MCHC 35.0 (32-36) g/dL RDW 12.3 (11.5-14.0) % Plt Count 250 (150-450) x10^3/uL MPV 11.2 H (7.5-11.0) fL Gran % 63.4 (36.0-66.0) % Immature Gran % (Auto) 1.1 H (0.00-0.4) % Nucleat RBC Rel Count 0.0 (0.00-0.1) % Eos # (Auto) 0.06 (0-0.5) x10^3/uL Immature Gran # (Auto) 0.09 H (0.00-0.03) x10^3u/L Absolute Lymphs (auto) 2.06 (1.0-4.6) x10^3/uL Absolute Monos (auto) 0.81 (0.0-1.3) x10^3/uL Absolute Nucleated RBC 0.00 (0.00-0.01) x10^3u/L Lymphocytes % 24.6 (24.0-44.0) % Monocytes % 9.7 (0.0-12.0) % Eosinophils % 0.7 (0.00-5.0) % Basophils % 0.5 (0.0-0.4) % Absolute Granulocytes 5.31 (1.4-6.9) x10^3/uL Basophils # 0.04 (0-0.4) x10^3/uL Sodium 135 L (137-145) mmol/L Potassium 4.0 (3.5-5.1) mmol/L Chloride 108 H (98-107) mmol/L Carbon Dioxide 17 L (22-30) mmol/L Anion Gap 14.1 (5-15) MEQ/L BUN 12 (9-20) mg/dL Creatinine 0.77 (0.66-1.25) mg/dL Estimated GFR 129.0 ML/MIN Glucose 96 (74-106) mg/dL Calcium 9.3 (8.4-10.2) mg/dL Total Bilirubin 1.10 (0.2-1.3) mg/dL AST 59 (17-59) U/L ALT 99 H (0-50) U/L Alkaline Phosphatase 85 (38-126) U/L Troponin I 4.940 H* 5.120 H* (0.000-0.034) ng/mL Serum Total Protein 7.7 (6.3-8.2) g/dL Albumin 4.6 (3.5-5.0) g/dL Amylase 75 (30-110) U/L Lipase 72 (23-300) U/L - Progress Progress: improved Counseled pt/family regarding: lab results, diagnosis, need for follow-up, rad results <THOMAS BELTRAN - Last Filed: 12/17/23 18:53> <ANITHA ROMERO - Last Filed: 12/17/23 21:24> - Progress Progress Note: 12/17/23 19:34 I spoke with hotel clerk Dr. Skaggs who is covering for this patient's hotel clerk Dr. Hong. The plan is to recheck a troponin at least 2 hours after the first troponin level was drawn. If it is the same or lower, and if the hospitalist here will monitor the patient overnight, we will place the patient in observation and monitor the patient's serial troponin levels. If the troponin repeat is increasing then we are to call Dr. Skaggs back and to transfer the patient per his request. I did verify with the patient, he is taking aspirin and Plavix as he was told to do since his cardiac stent placement. 12/17/23 21:[address] Torres, the hospitalist on at this time. I reviewed the patient history, patient primary complaint and the physical findings on examination as well as the results of the patient's twelve-lead EKG, laboratory studies. I also reviewed with him my discussion with the hotel clerk Dr. Skaggs. The re peat troponin level is decreasing. It is decreased from 5.12 down to 4.9. Patient was reexamined and he has no chest pain. Patient is agreeable to be placed in observation and follow serial troponin levels and then repeat a twelve-lead EKG in the morning on 12/18/2023. Dr. Torres agrees to place him in observation. If the troponin suddenly increases, Dr. Torres will be calling Dr. Skaggs for further instructions and likely for transfer of this patient. 12/17/23 21:24 Dr. Skaggs and I are in agreement that the elevated troponin is likely secondary to the recent cardiac catheterization and cardiac stent placement and the troponins will continue to trend downward. (ANITHA ROMERO) Medical Desision Making - Independent Historian Additional History obtained from: Family - Diagnostic Testing Diagnostic test were ordered, analyzed, and reviewed by me: Yes Radiological Interpretation: Reviewed by me - Risk of complications The pt has a mod risk of morbidity or mortality based on: Need for prescription drug management <RUBY,THOMAS - Last Filed: 12/17/23 18:53> - Diagnostic Testing Diagnostic test were ordered, analyzed, and reviewed by me: Yes - Risk of complications The pt has a high risk of morbidity or mortality based on: Decision regarding hospitilization or escalation of hosp level of care <ANITHA ROMERO - Last Filed: 12/17/23 21:24> - Departure Departure Disposition: Home Critical Care Time: No <THOMAS BELTRAN - Last Filed: 12/17/23 18:53> - Departure Departure Disposition: Observation <ANITHA ROMERO - Last Filed: 12/17/23 21:24> - Departure Clinical Impression: NSAID induced gastritis, Elevated troponin I level Abdominal pain Qualifiers: Abdominal location: epigastric Qualified Code(s): R10.13 - Epigastric pain Condition: Stable Referrals: BRI WING [Primary Care Provider] - Follow up/PCP as directed Instructions: [place] Diet, Gastritis (DC), Ulcer and Gastritis Diet Additional Instructions: Discharge/Care Plan DARREN VINCENT was seen on 12/17/23 in the Emergency Room. The patient was counseled regarding Diagnosis,Lab results, Imaging studies, need for follow up and when to return to the Emergency Room. Prescriptions given: Discharge Note I have spoken with the patient and/or caregivers. I have explained the patient's condition, diagnosis and treatment plan based on the information available to me at this time. I have answered the patient's and/or caregiver's questions and addressed any concerns. The patient and/or caregivers have as good understanding of the patient's diagnosis, condition and treatment plan as can be expected at this point. The vital signs have been stable. The patient's condition is stable and appropriate for discharge from the emergency department. The patient will pursue further outpatient evaluation with the primary care physician or other designated or consulting physician as outlined in the discharge instructions. The patient and/or caregivers are agreeable to this plan of care and follow-up instructions have been explained in detail. The patient and/or caregivers have received these instruction. The patient/and or caregivers are aware that any significant change in condition or worsening of symptoms should prompt an immediate return to this or the closest emergency department or call 911. DARREN VINCENT was seen on 12/17/23 n the Emergency Room. At that time you were treated for an emergent condition, during your visit Laboratory, Radiology and/or other procedures may have been ordered. It is very important that you follow-up with your Primary Care Physician BRI WING within the next 24-48 hours to review your Emergency Room visit and the final results of testing that was ordered. Some test results such as Urine Cultures, Blood Cultures, and other cultures if ordered will not be finalized for 24-48 hours. If you do not have a Primary Care Provider please call the medical records department at [phone] ext [phone] to obtain a copy of your results or you may sign into our patient portal to obtain these results by visiting us @ [email or web address] and completing the following steps: 1. Click on the Patient Portal link 2. Click the Patient Self Enrollment Link to complete the enrollment form and entering your 3. Once the enrollment form is completed you will receive an email with a temporary ID and password at the email address you provided. 4. Next choose a user name and password. Your user name must be at least 4 characters long and your password must be at least 4 characters long. 5. Choose a security question from the list and provide your answer to the question. If you already have signed into the Health Portal you may access your Health Care Information 05/06 by the following steps: 1. Login to our website @ [email or web address] 2. Enter your original user name and password. FAQS The [facility] Health Portal is an online tool that contains your Lab Results, Radiology Reports, Visit History, Discharge Instructions and Health Summary Lab and Radiology Results will not be available for 72 hours on the portal. The Portal is a secure site, passwords are encryted and URLs are re-written so they cannot be copied and pasted. You and authorized family members are the only ones who can access your Portal. Also there is a timeout feature that protects your information if you leave the Portal page open. If you have technical difficulty please use the Contact Us link on the page this will allow you to submit any questions you have regarding the Portal or you may contact the Medical Record Department at [phone] ext [phone].
[2023-12-17 18:46] LABS: ALBUMIN 4.6 g/dL (3.5-5.0); ANION GAP 14.1 MEQ/L (5-15); BILIRUBIN,TOTAL 1.1 mg/dL (0.2-1.3); Calcium 9.3 mg/dL (8.4-10.2); Creatinine 1 0.77 mg/dL (0.66-1.25); Total Protein 7.7 g/dL (6.3-8.2)
[2023-12-17 19:10] LABS: TROPONIN 5.12 ng/mL (0.000-0.034)
[2023-12-17] MEDS ORDERED: TYLENOL 325 MG PO PRN (22:02)
[2023-12-17] MEDS ORDERED: ZOFRAN ODT 4 MG PO PRN (22:02)
--- NOTE | 2023-12-17 22:03 | PCM.HP ---
History of Present Illness - Chief Complaint Chief Complaint: Chest pain, abdominal pain History of Present Illness: is a 23 year old male with a past medical history significant for a recent [place] 1 week ago s/p cardiac cath and stent placement, on plavix who presented with epigastric abdominal pain, with nausea, vomiting. No chest pain. Troponin was elevated and senior hardware engineer wanted to monitor overnight though suspects this elevation was likely related to recent stent placement. - Review of Systems Constitutional: No Fever, No Chills Eyes: No Symptoms Ears, Nose, & Throat: No Symptoms Respiratory: No Cough, No Short Of Breath Cardiac: No Chest Pain, No Edema, No Syncope Abdominal/Gastrointestinal: No Abdominal Pain, No Nausea, No Vomiting, No Diarrhea Genitourinary Symptoms: No Dysuria Musculoskeletal: No Back Pain, No Neck Pain Skin: No Rash Neurological: No Dizziness, No Focal Weakness, No Sensory Changes Psychological: No Symptoms Endocrine: No Symptoms Hematologic/Lymphatic: No Symptoms Immunological/Allergic: No Symptoms Medications & Allergies Home Medications: Home Medication List Omeprazole 20 mg PO DAILY 02/26/23 [History Confirmed 12/17/23] Atorvastatin Calcium 40 mg PO QHS 04/02/23 [History Confirmed 12/17/23] lisinopriL [Zestril] 2.5 mg PO DAILY 04/02/23 [History Confirmed 12/17/23] Aspirin EC 81 mg [Ecotrin 81 mg] 81 mg PO DAILY #0 10/09/23 [Rx Confirmed 12/17/23] Clopidogrel Bisulfate [Plavix] 75 mg PO DAILY #0 10/09/23 [Rx Confirmed 12/17/23] Isosorbide Mononitrate 30 mg [Imdur 30 MG] 30 mg PO DAILY 11/09/23 [History Confirmed 12/17/23] Allergies/Adverse Reactions: Allergies Allergy/AdvReac Type Severity Reaction Status Date / Time No Known Drug Allergies Allergy Verified 12/17/23 16:37 - Past Medical History Past Medical History: Yes Neurological History: No Pertinent History ENT History: No Pertinent History Cardiac History: Coronary Artery Disease, Hypertension, Myocardial Infarction ([place]) Respiratory History: Asthma Endocrine Medical History: No Pertinent History Musculoskelatal History: No Pertinent History GI Medical History: GERD, Gallbladder Disease History: No Pertinent History Pyscho-Social History: No Pertinent History Male Reproductive Disorders: No Pertinent History Comment: skin cancer when 4 years old - removed - Past Surgical History Past Surgical History: Yes Neuro Surgical History: No Pertinent History Cardiac History: Cardiac Catheterization, Cardiac Stent Respiratory Surgery: No Pertinent History GI Surgical History: Cholecystectomy Genitourinary Surgical Hx: No Pertinent History Musculskeletal Surgical Hx: No Pertinent History Male Surgical History: No Pertinent History Other Surgical History: skin cancer, endoscope of my stomach, GOSIA, - Social History Smoking Status: Former smoker How long have you smoked: 3 years Exposure to second hand smoke: No Alcohol: None Drug Use: marijuana Significant Family History: heart disease - Physical Exam Vital Signs: Vital Signs - 24 hr Temp Pulse Resp BP BP Pulse Ox 12/17/23 21:00 86 12 116/78 96 12/17/23 20:30 105 H 11 L 108/66 98 12/17/23 20:01 100 H 20 106/73 95 12/17/23 19:30 93 H 16 104/65 95 12/17/23 18:55 95 12/17/23 18:30 113/75 12/17/23 18:00 83 13 114/85 97 12/17/23 17:50 95 H 10 L 96 12/17/23 17:40 91 H 22 95 12/17/23 17:33 90 19 93 L 12/17/23 17:14 96 H 22 112/79 95 12/17/23 17:00 92 H 20 115/71 95 12/17/23 16:40 96.8 F 98 H 22 107/81 97 General Appearance: no apparent distress, alert Neurologic Exam: alert, oriented x 3, cooperative, normal mood/affect, nml cerebellar function, nml station & gait, sensation nml, No motor deficits Eye Exam: PERRL/EOMI, eyes nml inspection Ears, Nose, Throat Exam: normal ENT inspection, TMs normal, pharynx normal, moist mucous membranes Neck Exam: normal inspection, non-tender, supple, full range of motion Respiratory Exam: normal breath sounds, lungs clear, No respiratory distress Cardiovascular Exam: regular rate/rhythm, normal heart sounds, normal peripheral pulses Gastrointestinal/Abdomen Exam: soft, normal bowel sounds, No tenderness, No mass Back Exam: normal inspection, normal range of motion, No CVA tenderness, No vertebral tenderness Extremity Exam: normal inspection, normal range of motion, pelvis stable Skin Exam: normal color, warm, dry, No rash Lymphatic Exam: No adenopathy Results - Labs Lab/Micro Results: Lab Results-Last 24 Hours 12/17/23 12/17/23 12/17/23 Range/Units 17:10 17:10 20:20 WBC 8.4 (4.0-10.5) x10^3/uL RBC 4.60 (4.1-5.6) x10^6/uL Hgb 14.3 (12.5-18.0) g/dL Hct 40.9 L (42-50) % MCV 88.9 (78-100) fL MCH 31.1 (26-32) pg MCHC 35.0 (32-36) g/dL RDW 12.3 (11.5-14.0) % Plt Count 250 (150-450) x10^3/uL MPV 11.2 H (7.5-11.0) fL Gran % 63.4 (36.0-66.0) % Immature Gran % (Auto) 1.1 H (0.00-0.4) % Nucleat RBC Rel Count 0.0 (0.00-0.1) % Eos # (Auto) 0.06 (0-0.5) x10^3/uL Immature Gran # (Auto) 0.09 H (0.00-0.03) x10^3u/L Absolute Lymphs (auto) 2.06 (1.0-4.6) x10^3/uL Absolute Monos (auto) 0.81 (0.0-1.3) x10^3/uL Absolute Nucleated RBC 0.00 (0.00-0.01) x10^3u/L Lymphocytes % 24.6 (24.0-44.0) % Monocytes % 9.7 (0.0-12.0) % Eosinophils % 0.7 (0.00-5.0) % Basophils % 0.5 (0.0-0.4) % Absolute Granulocytes 5.31 (1.4-6.9) x10^3/uL Basophils # 0.04 (0-0.4) x10^3/uL Sodium 135 L (137-145) mmol/L Potassium 4.0 (3.5-5.1) mmol/L Chloride 108 H (98-107) mmol/L Carbon Dioxide 17 L (22-30) mmol/L Anion Gap 14.1 (5-15) MEQ/L BUN 12 (9-20) mg/dL Creatinine 0.77 (0.66-1.25) mg/dL Estimated GFR 129.0 ML/MIN Glucose 96 (74-106) mg/dL Calcium 9.3 (8.4-10.2) mg/dL Total Bilirubin 1.10 (0.2-1.3) mg/dL AST 59 (17-59) U/L ALT 99 H (0-50) U/L Alkaline Phosphatase 85 (38-126) U/L Troponin I 5.120 H* 4.940 H* (0.000-0.034) ng/mL Serum Total Protein 7.7 (6.3-8.2) g/dL Albumin 4.6 (3.5-5.0) g/dL Amylase 75 (30-110) U/L Lipase 72 (23-300) U/L Assessment/Plan (1) Elevated troponin I level Current Visit: Yes Status: Acute Assessment & Plan: 1. Likely related to recent cardiac stent 2. Monitor Troponin x 1 overnight to ensure decrease, if rising, transfer to primary senior hardware engineer Code(s): R79.89 - OTHER SPECIFIED ABNORMAL FINDINGS OF BLOOD CHEMISTRY Telemedicine Encounter - Telemedicine Encounter Telemedicine Encounter: The entirety of this encounter was performed via Telemedicine"
[2023-12-17] MEDS: Sodium Chloride 0.9% 1000 ML 1,000 ML IV SCH (23:17)
[2023-12-18 04:59] LABS: Absolute Neutrophil Ct (ANC) 6.18 x10^3/uL (1.4-6.9); BASOPHIL % 0.4 % (0.0-0.4); Basophil (Absolute #) 0.04 x10^3/uL (0-0.4); Eosinophil % 1.3 % (0.00-5.0); Eosinophil (Absolute #) 0.14 x10^3/uL (0-0.5); Hematocrit 40.2 % (42-50); Hemoglobin 13.6 g/dL (12.5-18.0); IMMATURE GRAN # 0.06 x10^3u/L (0.00-0.03); IMMATURE GRAN % 0.6 % (0.00-0.4); Lymphocyte (Absolute #) 3.18 x10^3/uL (1.0-4.6); Lymphocytes % 30.2 % (24.0-44.0); Mean Cell Volume 90.7 fL (78-100); Mean Corpuscular Hemoglobin 30.7 pg (26-32); Mean Corpuscular Hgb Concent. 33.8 g/dL (32-36); Mean Platelet Volume 11.3 fL (7.5-11.0); Monocyte (Absolute #) 0.94 x10^3/uL (0.0-1.3); Monocytes % 8.9 % (0.0-12.0); Neutrophil % 58.6 % (36.0-66.0); Platelet Count 257 x10^3/uL (150-450); Red Blood Count 4.43 x10^6/uL (4.1-5.6); Red Cell Distribution Width 12.4 % (11.5-14.0); White Blood Count 10.5 x10^3/uL (4.0-10.5)
[2023-12-18 05:16] LABS: PROTIME 10.9 SECONDS (9.4-12.5)
[2023-12-18 05:22] LABS: ALBUMIN 4.3 g/dL (3.5-5.0); ANION GAP 12.5 MEQ/L (5-15); BILIRUBIN,TOTAL 0.7 mg/dL (0.2-1.3); Calcium 9.1 mg/dL (8.4-10.2); Creatinine 1 0.94 mg/dL (0.66-1.25); EST GLOMERULAR FILTRATION RATE 116.8 ML/MIN; Potassium 3.7 mmol/L (3.5-5.1); Total Protein 7.3 g/dL (6.3-8.2)
--- NOTE | 2023-12-18 05:25 | PCM.NOTE ---
Date and Time: 12/18/23519 Subjective Assessment: is a 23 year old male with a past medical history significant for a recent AR 1 week ago s/p cardiac cath and stent placement, on plavix who presented with epigastric abdominal pain, with nausea, vomiting. No chest pain. Troponin was elevated and district wildlife manager Dr. Styles advised monitoring patient overnight though suspects this elevation was likely related to recent cardiac cath and stent placement. Denies chest pain. Patient was put on Plavix and other blood pressure medication including levofloxacin for possible H. pylori infection. OBJECTIVE DATA Vital Signs: Vital Signs - 24 hr Temp Pulse Resp BP BP Pulse Ox 12/18/23 04:00 97.9 F 83 18 113/67 98 12/17/23 23:59 97.3 F 90 18 121/75 96 12/17/23 23:23 97.3 F 90 18 121/75 96 12/17/23 22:57 97.3 F 90 18 121/75 96 12/17/23 21:00 86 12 116/78 96 12/17/23 20:30 105 H 11 L 108/66 98 12/17/23 20:01 100 H 20 106/73 95 12/17/23 19:30 93 H 16 104/65 95 12/17/23 18:55 95 12/17/23 18:30 113/75 12/17/23 18:00 83 13 114/85 97 12/17/23 17:50 95 H 10 L 96 12/17/23 17:40 91 H 22 95 12/17/23 17:33 90 19 93 L 12/17/23 17:14 96 H 22 112/79 95 12/17/23 17:00 92 H 20 115/71 95 12/17/23 16:40 96.8 F 98 H 22 107/81 97 Pain Assessment - Last Documented Pain Intensity 0 Intake and Output: Intake & Output 12/15/23 12/16/23 12/17/23 12/18/23 11:59 11:59 11:59 11:59 Intake Total 946 Balance 946 Weight 114 kg Lab Results: Lab Results-Last 24 Hours 12/17/23 12/17/23 12/17/23 Range/Units 17:10 17:10 20:20 WBC 8.4 (4.0-10.5) x10^3/uL RBC 4.60 (4.1-5.6) x10^6/uL Hgb 14.3 (12.5-18.0) g/dL Hct 40.9 L (42-50) % MCV 88.9 (78-100) fL MCH 31.1 (26-32) pg MCHC 35.0 (32-36) g/dL RDW 12.3 (11.5-14.0) % Plt Count 250 (150-450) x10^3/uL MPV 11.2 H (7.5-11.0) fL Gran % 63.4 (36.0-66.0) % Immature Gran % (Auto) 1.1 H (0.00-0.4) % Nucleat RBC Rel Count 0.0 (0.00-0.1) % Eos # (Auto) 0.06 (0-0.5) x10^3/uL Immature Gran # (Auto) 0.09 H (0.00-0.03) x10^3u/L Absolute Lymphs (auto) 2.06 (1.0-4.6) x10^3/uL Absolute Monos (auto) 0.81 (0.0-1.3) x10^3/uL Absolute Nucleated RBC 0.00 (0.00-0.01) x10^3u/L Lymphocytes % 24.6 (24.0-44.0) % Monocytes % 9.7 (0.0-12.0) % Eosinophils % 0.7 (0.00-5.0) % Basophils % 0.5 (0.0-0.4) % Absolute Granulocytes 5.31 (1.4-6.9) x10^3/uL Basophils # 0.04 (0-0.4) x10^3/uL Sodium 135 L (137-145) mmol/L Potassium 4.0 (3.5-5.1) mmol/L Chloride 108 H (98-107) mmol/L Carbon Dioxide 17 L (22-30) mmol/L Anion Gap 14.1 (5-15) MEQ/L BUN 12 (9-20) mg/dL Creatinine 0.77 (0.66-1.25) mg/dL Estimated GFR 129.0 ML/MIN Glucose 96 (74-106) mg/dL Calcium 9.3 (8.4-10.2) mg/dL Total Bilirubin 1.10 (0.2-1.3) mg/dL AST 59 (17-59) U/L ALT 99 H (0-50) U/L Alkaline Phosphatase 85 (38-126) U/L Troponin I 5.120 H* 4.940 H* (0.000-0.034) ng/mL Serum Total Protein 7.7 (6.3-8.2) g/dL Albumin 4.6 (3.5-5.0) g/dL Amylase 75 (30-110) U/L Lipase 72 (23-300) U/L 12/17/23 12/18/23 Range/Units 23:59 04:57 WBC 10.5 (4.0-10.5) x10^3/uL RBC 4.43 (4.1-5.6) x10^6/uL Hgb 13.6 (12.5-18.0) g/dL Hct 40.2 L (42-50) % MCV 90.7 (78-100) fL MCH 30.7 (26-32) pg MCHC 33.8 (32-36) g/dL RDW 12.4 (11.5-14.0) % Plt Count 257 (150-450) x10^3/uL MPV 11.3 H (7.5-11.0) fL Gran % 58.6 (36.0-66.0) % Immature Gran % (Auto) 0.6 H (0.00-0.4) % Nucleat RBC Rel Count 0.0 (0.00-0.1) % Eos # (Auto) 0.14 (0-0.5) x10^3/uL Immature Gran # (Auto) 0.06 H (0.00-0.03) x10^3u/L Absolute Lymphs (auto) 3.18 (1.0-4.6) x10^3/uL Absolute Monos (auto) 0.94 (0.0-1.3) x10^3/uL Absolute Nucleated RBC 0.00 (0.00-0.01) x10^3u/L Lymphocytes % 30.2 (24.0-44.0) % Monocytes % 8.9 (0.0-12.0) % Eosinophils % 1.3 (0.00-5.0) % Basophils % 0.4 (0.0-0.4) % Absolute Granulocytes 6.18 (1.4-6.9) x10^3/uL Basophils # 0.04 (0-0.4) x10^3/uL Sodium (137-145) mmol/L Potassium (3.5-5.1) mmol/L Chloride (98-107) mmol/L Carbon Dioxide (22-30) mmol/L Anion Gap (5-15) MEQ/L BUN (9-20) mg/dL Creatinine (0.66-1.25) mg/dL Estimated GFR ML/MIN Glucose (74-106) mg/dL Calcium (8.4-10.2) mg/dL Total Bilirubin (0.2-1.3) mg/dL AST (17-59) U/L ALT (0-50) U/L Alkaline Phosphatase (38-126) U/L Troponin I 4.730 H* (0.000-0.034) ng/mL Serum Total Protein (6.3-8.2) g/dL Albumin (3.5-5.0) g/dL Amylase (30-110) U/L Lipase (23-300) U/L Assessment/Plan (1) Elevated troponin I level Current Visit: Yes Status: Acute Assessment & Plan: -Per cardiology likely related to recent cardiac stent -Trops downtrending yet remain remarkably elevated 4.730<4.940<5.120 Code(s): R79.89 - OTHER SPECIFIED ABNORMAL FINDINGS OF BLOOD CHEMISTRY (2) Acidosis Current Visit: Yes Status: Acute Assessment & Plan: -labs reviewed with co2 at 17 Code(s): E87.20 - ACIDOSIS, UNSPECIFIED (3) Abdominal pain Current Visit: Yes Status: Acute Qualifiers: Abdominal location: epigastric Qualified Code(s): R10.13 - Epigastric pain Assessment & Plan: -on levofloxacin for possible hyplori infection Code(s): R10.9 - UNSPECIFIED ABDOMINAL PAIN (4) CAD (coronary artery disease) Current Visit: Yes Status: Acute Assessment & Plan: -noted with recent cardiac cath and stent placement one week ago Code(s): I25.10 - ATHSCL HEART DISEASE OF [place] CORONARY ARTERY W/O ANG PCTRS (5) HTN (hypertension) Current Visit: Yes Status: Acute Code(s): I10 - ESSENTIAL (PRIMARY) HYPERTENSION (6) GERD (gastroesophageal reflux disease) Current Visit: Yes Status: Acute Code(s): K21.9 - GASTRO-ESOPHAGEAL REFLUX DISEASE WITHOUT ESOPHAGITIS
--- NOTE | 2023-12-18 07:25 | PCM.DS ---
Discharge Summary Date of Admission: 12/17/23 21:56 Date of Discharge: 12/18/23 Admitting Physician: YADIRA MCCLURE MD Consults: Consults on Case 12/17/23 23:35 Case Management SDOH DC Needs Assessment ROUTINE Primary Care Provider: BRI WING <DIMITRY CORNEJO - Last Filed: 12/18/23 07:19> Date of Admission: 12/17/23 21:56 Admitting Physician: YADIRA MCCLURE MD Consults: Consults on Case 12/17/23 23:35 Case Management SDOH DC Needs Assessment ROUTINE Primary Care Provider: BRI WING <BRADLEY SHEPHERD - Last Filed: 12/18/23 20:56> Allergies <DIMITRY CORNEJO - Last Filed: 12/18/23 07:19> <BRADLEY SHEPHERD - Last Filed: 12/18/23 20:56> Allergies No Known Drug Allergies Allergy (Verified 12/17/23 22:58) Hospital Summary - Hospital Course Hospital Course: is a 23 year old male with a past medical history significant for 2 previous MIs with the most recent 1 week ago. He is s/p cardiac cath and stent placement, on plavix. The patient presented with epigastric abdominal pain, with nausea, vomiting. No chest pain. Troponin was elevated and blue leather sorter Dr. Styles advised monitoring patient overnight though suspects this elevation was likely related to recent cardiac cath and stent placement. Denies chest pain. Patient was put on Plavix and other blood pressure medication including levofloxacin for possible H. pylori infection. Repeat troponin noting uptrend at 5.680, EKG with ST depression. Patient to transfer to [facility] for higher level of care where his blue leather sorter Dr. Hong can evaluate him. - Vitals & Intake/Output Vital Signs: Vital Signs Temperature 97.9 F 12/18/23 04:00 Pulse Rate 83 12/18/23 04:00 Respiratory Rate 18 12/18/23 04:00 Blood Pressure 113/67 12/18/23 04:00 O2 Sat by Pulse Oximetry 98 12/18/23 04:00 Intake & Output: Intake & Output 12/15/23 12/16/23 12/17/23 12/18/23 11:59 11:59 11:59 11:59 Intake Total 946 Balance 946 Weight 114 kg - Lab Result Diagrams: 12/18/23 04:57 12/18/23 04:57 Lab Results-Last 24 Hrs: Lab Results-Last 24 Hours 12/17/23 12/17/23 12/17/23 Range/Units 17:10 17:10 20:20 WBC 8.4 (4.0-10.5) x10^3/uL RBC 4.60 (4.1-5.6) x10^6/uL Hgb 14.3 (12.5-18.0) g/dL Hct 40.9 L (42-50) % MCV 88.9 (78-100) fL MCH 31.1 (26-32) pg MCHC 35.0 (32-36) g/dL RDW 12.3 (11.5-14.0) % Plt Count 250 (150-450) x10^3/uL MPV 11.2 H (7.5-11.0) fL Gran % 63.4 (36.0-66.0) % Immature Gran % (Auto) 1.1 H (0.00-0.4) % Nucleat RBC Rel Count 0.0 (0.00-0.1) % Eos # (Auto) 0.06 (0-0.5) x10^3/uL Immature Gran # (Auto) 0.09 H (0.00-0.03) x10^3u/L Absolute Lymphs (auto) 2.06 (1.0-4.6) x10^3/uL Absolute Monos (auto) 0.81 (0.0-1.3) x10^3/uL Absolute Nucleated RBC 0.00 (0.00-0.01) x10^3u/L Lymphocytes % 24.6 (24.0-44.0) % Monocytes % 9.7 (0.0-12.0) % Eosinophils % 0.7 (0.00-5.0) % Basophils % 0.5 (0.0-0.4) % Absolute Granulocytes 5.31 (1.4-6.9) x10^3/uL Basophils # 0.04 (0-0.4) x10^3/uL PT (9.4-12.5) SECONDS INR (0.8-3.0) Sodium 135 L (137-145) mmol/L Potassium 4.0 (3.5-5.1) mmol/L Chloride 108 H (98-107) mmol/L Carbon Dioxide 17 L (22-30) mmol/L Anion Gap 14.1 (5-15) MEQ/L BUN 12 (9-20) mg/dL Creatinine 0.77 (0.66-1.25) mg/dL Estimated GFR 129.0 ML/MIN Glucose 96 (74-106) mg/dL Calcium 9.3 (8.4-10.2) mg/dL Total Bilirubin 1.10 (0.2-1.3) mg/dL AST 59 (17-59) U/L ALT 99 H (0-50) U/L Alkaline Phosphatase 85 (38-126) U/L Troponin I 5.120 H* 4.940 H* (0.000-0.034) ng/mL Serum Total Protein 7.7 (6.3-8.2) g/dL Albumin 4.6 (3.5-5.0) g/dL Amylase 75 (30-110) U/L Lipase 72 (23-300) U/L 12/17/23 12/18/23 12/18/23 Range/Units 23:59 04:57 04:57 WBC 10.5 (4.0-10.5) x10^3/uL RBC 4.43 (4.1-5.6) x10^6/uL Hgb 13.6 (12.5-18.0) g/dL Hct 40.2 L (42-50) % MCV 90.7 (78-100) fL MCH 30.7 (26-32) pg MCHC 33.8 (32-36) g/dL RDW 12.4 (11.5-14.0) % Plt Count 257 (150-450) x10^3/uL MPV 11.3 H (7.5-11.0) fL Gran % 58.6 (36.0-66.0) % Immature Gran % (Auto) 0.6 H (0.00-0.4) % Nucleat RBC Rel Count 0.0 (0.00-0.1) % Eos # (Auto) 0.14 (0-0.5) x10^3/uL Immature Gran # (Auto) 0.06 H (0.00-0.03) x10^3u/L Absolute Lymphs (auto) 3.18 (1.0-4.6) x10^3/uL Absolute Monos (auto) 0.94 (0.0-1.3) x10^3/uL Absolute Nucleated RBC 0.00 (0.00-0.01) x10^3u/L Lymphocytes % 30.2 (24.0-44.0) % Monocytes % 8.9 (0.0-12.0) % Eosinophils % 1.3 (0.00-5.0) % Basophils % 0.4 (0.0-0.4) % Absolute Granulocytes 6.18 (1.4-6.9) x10^3/uL Basophils # 0.04 (0-0.4) x10^3/uL PT (9.4-12.5) SECONDS INR (0.8-3.0) Sodium 136 L (137-145) mmol/L Potassium 3.7 (3.5-5.1) mmol/L Chloride 103 (98-107) mmol/L Carbon Dioxide 24 (22-30) mmol/L Anion Gap 12.5 (5-15) MEQ/L BUN 12 (9-20) mg/dL Creatinine 0.94 (0.66-1.25) mg/dL Estimated GFR 116.8 ML/MIN Glucose 87 (74-106) mg/dL Calcium 9.1 (8.4-10.2) mg/dL Total Bilirubin 0.70 (0.2-1.3) mg/dL AST 56 (17-59) U/L ALT 107 H (0-50) U/L Alkaline Phosphatase 74 (38-126) U/L Troponin I 4.730 H* (0.000-0.034) ng/mL Serum Total Protein 7.3 (6.3-8.2) g/dL Albumin 4.3 (3.5-5.0) g/dL Amylase (30-110) U/L Lipase (23-300) U/L 12/18/23 12/18/23 Range/Units 04:57 04:57 WBC (4.0-10.5) x10^3/uL RBC (4.1-5.6) x10^6/uL Hgb (12.5-18.0) g/dL Hct (42-50) % MCV (78-100) fL MCH (26-32) pg MCHC (32-36) g/dL RDW (11.5-14.0) % Plt Count (150-450) x10^3/uL MPV (7.5-11.0) fL Gran % (36.0-66.0) % Immature Gran % (Auto) (0.00-0.4) % Nucleat RBC Rel Count (0.00-0.1) % Eos # (Auto) (0-0.5) x10^3/uL Immature Gran # (Auto) (0.00-0.03) x10^3u/L Absolute Lymphs (auto) (1.0-4.6) x10^3/uL Absolute Monos (auto) (0.0-1.3) x10^3/uL Absolute Nucleated RBC (0.00-0.01) x10^3u/L Lymphocytes % (24.0-44.0) % Monocytes % (0.0-12.0) % Eosinophils % (0.00-5.0) % Basophils % (0.0-0.4) % Absolute Granulocytes (1.4-6.9) x10^3/uL Basophils # (0-0.4) x10^3/uL PT 10.9 (9.4-12.5) SECONDS INR 1.00 (0.8-3.0) Sodium (137-145) mmol/L Potassium (3.5-5.1) mmol/L Chloride (98-107) mmol/L Carbon Dioxide (22-30) mmol/L Anion Gap (5-15) MEQ/L BUN (9-20) mg/dL Creatinine (0.66-1.25) mg/dL Estimated GFR ML/MIN Glucose (74-106) mg/dL Calcium (8.4-10.2) mg/dL Total Bilirubin (0.2-1.3) mg/dL AST (17-59) U/L ALT (0-50) U/L Alkaline Phosphatase (38-126) U/L Troponin I 5.680 H* (0.000-0.034) ng/mL Serum Total Protein (6.3-8.2) g/dL Albumin (3.5-5.0) g/dL Amylase (30-110) U/L Lipase (23-300) U/L - Procedures and Test Procedures and Tests throughout Hospitalization: Therapy Orders & Screens 12/17/23 22:02 EKG REPEAT IN AM Comment: <DIMITRY CORNEJO - Last Filed: 12/18/23 07:19> - Vitals & Intake/Output Vital Signs: Vital Signs Temperature 97.9 F 12/18/23 19:20 Pulse Rate 101 H 12/18/23 19:20 Respiratory Rate 16 12/18/23 19:20 Blood Pressure 140/94 12/18/23 19:20 O2 Sat by Pulse Oximetry 98 12/18/23 19:20 Intake & Output: Intake & Output 12/16/23 12/17/23 12/18/23 12/19/23 11:59 11:59 11:59 11:59 Intake Total 1186 360 Balance 1186 360 Weight 114 kg - Lab Result Diagrams: 12/18/23 04:57 12/18/23 04:57 Lab Results-Last 24 Hrs: Lab Results-Last 24 Hours 12/17/23 12/17/23 12/18/23 Range/Units 20:20 23:59 04:57 WBC 10.5 (4.0-10.5) x10^3/uL RBC 4.43 (4.1-5.6) x10^6/uL Hgb 13.6 (12.5-18.0) g/dL Hct 40.2 L (42-50) % MCV 90.7 (78-100) fL MCH 30.7 (26-32) pg MCHC 33.8 (32-36) g/dL RDW 12.4 (11.5-14.0) % Plt Count 257 (150-450) x10^3/uL MPV 11.3 H (7.5-11.0) fL Gran % 58.6 (36.0-66.0) % Immature Gran % (Auto) 0.6 H (0.00-0.4) % Nucleat RBC Rel Count 0.0 (0.00-0.1) % Eos # (Auto) 0.14 (0-0.5) x10^3/uL Immature Gran # (Auto) 0.06 H (0.00-0.03) x10^3u/L Absolute Lymphs (auto) 3.18 (1.0-4.6) x10^3/uL Absolute Monos (auto) 0.94 (0.0-1.3) x10^3/uL Absolute Nucleated RBC 0.00 (0.00-0.01) x10^3u/L Lymphocytes % 30.2 (24.0-44.0) % Monocytes % 8.9 (0.0-12.0) % Eosinophils % 1.3 (0.00-5.0) % Basophils % 0.4 (0.0-0.4) % Absolute Granulocytes 6.18 (1.4-6.9) x10^3/uL Basophils # 0.04 (0-0.4) x10^3/uL PT (9.4-12.5) SECONDS INR (0.8-3.0) Sodium (137-145) mmol/L Potassium (3.5-5.1) mmol/L Chloride (98-107) mmol/L Carbon Dioxide (22-30) mmol/L Anion Gap (5-15) MEQ/L BUN (9-20) mg/dL Creatinine (0.66-1.25) mg/dL Estimated GFR ML/MIN Glucose (74-106) mg/dL Calcium (8.4-10.2) mg/dL Total Bilirubin (0.2-1.3) mg/dL AST (17-59) U/L ALT (0-50) U/L Alkaline Phosphatase (38-126) U/L Troponin I 4.940 H* 4.730 H* (0.000-0.034) ng/mL Serum Total Protein (6.3-8.2) g/dL Albumin (3.5-5.0) g/dL 12/18/23 12/18/23 12/18/23 Range/Units 04:57 04:57 04:57 WBC (4.0-10.5) x10^3/uL RBC (4.1-5.6) x10^6/uL Hgb (12.5-18.0) g/dL Hct (42-50) % MCV (78-100) fL MCH (26-32) pg MCHC (32-36) g/dL RDW (11.5-14.0) % Plt Count (150-450) x10^3/uL MPV (7.5-11.0) fL Gran % (36.0-66.0) % Immature Gran % (Auto) (0.00-0.4) % Nucleat RBC Rel Count (0.00-0.1) % Eos # (Auto) (0-0.5) x10^3/uL Immature Gran # (Auto) (0.00-0.03) x10^3u/L Absolute Lymphs (auto) (1.0-4.6) x10^3/uL Absolute Monos (auto) (0.0-1.3) x10^3/uL Absolute Nucleated RBC (0.00-0.01) x10^3u/L Lymphocytes % (24.0-44.0) % Monocytes % (0.0-12.0) % Eosinophils % (0.00-5.0) % Basophils % (0.0-0.4) % Absolute Granulocytes (1.4-6.9) x10^3/uL Basophils # (0-0.4) x10^3/uL PT 10.9 (9.4-12.5) SECONDS INR 1.00 (0.8-3.0) Sodium 136 L (137-145) mmol/L Potassium 3.7 (3.5-5.1) mmol/L Chloride 103 (98-107) mmol/L Carbon Dioxide 24 (22-30) mmol/L Anion Gap 12.5 (5-15) MEQ/L BUN 12 (9-20) mg/dL Creatinine 0.94 (0.66-1.25) mg/dL Estimated GFR 116.8 ML/MIN Glucose 87 (74-106) mg/dL Calcium 9.1 (8.4-10.2) mg/dL Total Bilirubin 0.70 (0.2-1.3) mg/dL AST 56 (17-59) U/L ALT 107 H (0-50) U/L Alkaline Phosphatase 74 (38-126) U/L Troponin I 5.680 H* (0.000-0.034) ng/mL Serum Total Protein 7.3 (6.3-8.2) g/dL Albumin 4.3 (3.5-5.0) g/dL - Procedures and Test Procedures and Tests throughout Hospitalization: Therapy Orders & Screens 12/17/23 22:02 EKG REPEAT IN AM Comment: <BRADLEY SHEPHERD - Last Filed: 12/18/23 20:56> Discharge Exam General Appearance: no apparent distress Neurologic Exam: alert, oriented x 3, cooperative Eye Exam: PERRL Ears, Nose, Throat Exam: normal ENT inspection Neck Exam: normal inspection Respiratory Exam: normal breath sounds, lungs clear Cardiovascular Exam: regular rate/rhythm, normal heart sounds Gastrointestinal/Abdomen Exam: soft, normal bowel sounds Male Genitalia Exam: deferred Rectal Exam: deferred Back Exam: normal inspection Extremity Exam: normal inspection Skin Exam: normal color <DIMITRY CORNEJO - Last Filed: 12/18/23 07:19> Final Diagnosis/Problem List - Final Discharge Diagnosis/Problem (1) Elevated troponin I level Current Visit: Yes Status: Acute Assessment & Plan: -Uptrending 5.680>4.730<4.940<5.120 -EKG with ST depression -Transfer to [facility] Code(s): R79.89 - OTHER SPECIFIED ABNORMAL FINDINGS OF BLOOD CHEMISTRY (2) Acidosis Current Visit: Yes Status: Acute Assessment & Plan: -Most likely secondary to nausea and vomiting, has resolved, no longer vomiting Code(s): E87.20 - ACIDOSIS, UNSPECIFIED (3) Abdominal pain Current Visit: Yes Status: Acute Assessment & Plan: -resolved Code(s): R10.9 - UNSPECIFIED ABDOMINAL PAIN (4) CAD (coronary artery disease) Current Visit: Yes Status: Acute Assessment & Plan: -Extensive h/o 2 IA, most recent 1 week ago with cardiac cath/stents -continue home meds Code(s): I25.10 - ATHSCL HEART DISEASE OF [place] CORONARY ARTERY W/O ANG PCTRS (5) HTN (hypertension) Current Visit: Yes Status: Acute Assessment & Plan: -stable, resume home medications Code(s): I10 - ESSENTIAL (PRIMARY) HYPERTENSION (6) GERD (gastroesophageal reflux disease) Current Visit: Yes Status: Acute Assessment & Plan: -continue home meds Code(s): K21.9 - GASTRO-ESOPHAGEAL REFLUX DISEASE WITHOUT ESOPHAGITIS <DIMITRY CORNEJO - Last Filed: 12/18/23 07:19> <DIMITRY CORNEJO - Last Filed: 12/18/23 07:19> <BRADLEY SHEPHERD - Last Filed: 12/18/23 20:56> - Discharge Disposition: DC TO [facility] Condition: Fair Prescriptions: New Enoxaparin Sodium [Enoxaparin Sodium] 110 mg SQ Q12H Continue Aspirin EC 81 mg [Ecotrin 81 mg] 81 mg PO DAILY #0 Clopidogrel Bisulfate [Plavix] 75 mg PO DAILY #0 Isosorbide Mononitrate 30 mg [Imdur 30 MG] 30 mg PO DAILY Ondansetron [Ondansetron Odt] 4 mg PO Q6HPRN PRN PRN Reason: Nausea Metoprolol Tartrate 12.5 mg PO BID Losartan Potassium 12.5 mg PO DAILY Levofloxacin [Levofloxacin 500 MG Tablet] 500 mg PO DAILY Atorvastatin Calcium 40 mg PO HS Spironolactone 12.5 mg PO DAILY Follow up with: BRI WING [Primary Care Provider] - MARC Encounter - MACR Encounter Attestation MARC Encounter Attestation: "SujatapersonallyseenDARREN Amato andhavediscussed pertinent aspects of their care with Dimitry Huber agree with the history, physical exam (any modifications based on my personal exam will be noted below), assessment, and plan as outlined in original note. Please see immediately below for my summary of findings and additional assessment and plan along with any meaningful corrections/explanations to the Subjective/Objective portions of the MARC note will be noted." My portion of the encounter took place via telemedicine. <BRADLEY SHEPHERD - Last Filed: 12/18/23 20:56>
[2023-12-18] MEDS ORDERED: ENOXAPARIN SODIUM SQ SCH (08:00)
[2023-12-18] MEDS ORDERED: BABY ASPIRIN 81 MG CHEW PO SCH (10:00)
[2023-12-18] MEDS ORDERED: Ecotrin 325 MG PO SCH (10:00)
[2023-12-18] MEDS ORDERED: PLAVIX Tablet PO SCH (10:00)
[2023-12-18 19:20] VITALS: BP 140/94; PULSE 101; RESP 16; TEMP 97.9; O2SAT 98
[2023-12-18] MEDS: Sodium Chloride 0.9% 1000 ML 1,000 ML IV SCH (19:21)
== END 2023-12-18 21:25 | disposition home or self-care (01) ==
LOC: ED 16:15 → MED SURG 21:56
PROVIDERS: ADMIT Student in an Organized Health Care Education/Training Program; ATTEND Student in an Organized Health Care Education/Training Program
DX: R79.89 Other specified abnormal findings of blood chemistry (principal); E87.20 Acidosis, unspecified; R10.9 Unspecified abdominal pain; I25.10 Atherosclerotic heart disease of native coronary artery without angina pectoris; I10 Essential (primary) hypertension; K21.9 Gastro-esophageal reflux disease without esophagitis; I25.2 Old myocardial infarction; Z79.01 Long term (current) use of anticoagulants; Z79.899 Other long term (current) drug therapy; Z20.828 Contact with and (suspected) exposure to other viral communicable diseases; Z85.828 Personal history of other malignant neoplasm of skin; Z59.82 Transportation insecurity
CPT/HCPCS: 36000; 36415; 80053; 82150; 83690; 84484; 85025; 85610; 93005; 93041; 93268; 94760; 96374; 96375; 99285; G0378; Q3014; J1650; A9270-GY